=== PATIENT | female | born 1965 | race Caucasian/White ===

== ENCOUNTER 2018-06-21 16:36 | Emergency (ER) | payer MEDICARE, MEDICAID, SELFPAY ==
[2018-06-21] VITALS (68 sets, daily range): BP systolic 74–147; BP diastolic 36–91; PULSE 77–134; RESP 10–37; TEMP 37.1; O2SAT 90–100
--- NOTE | 2018-06-21 17:14 | W.ED.GENAD ---
Discharge Plan Disposition Patient Disposition: HOME Condition: Stable Discharge Details Chief Complaint: OD/Poison Clinical Impression: Overdose of anticonvulsant Primary Care Provider: Tenzin Espinoza ED Provider: Noemy Collado Home Meds and New Rx's Prescriptions: Continue lamotrigine [Lamictal] 150 MG tablet 275 mg PO DAILY RF: 0 fluticasone-salmeterol [Advair Diskus] 1 EACH blister with device 1 ea Inhalation RF: 0 cetirizine 5 MG tablet 10 mg PO DAILY RF: 0 cyanocobalamin (vitamin B-12) 1,000 MCG tablet 1,000 mcg PO DAILY RF: 0 gabapentin 250 MG/5 ML solution 600 mg PO HS RF: 0 calcium carbonate-vitamin D3 1 EACH tablet 1 ea PO RF: 0 podofilox 3.5 ML solution 3.5 ml Topical RF: 0 aspirin [Aspirin Low-Strength] 81 MG tablet,chewable 81 mg PO DAILY RF: 0 epinephrine [EpiPen 2-Tomas] 0.3 MG/0.3 ML auto-injector 0.3 mg IM ONCE RF: 0 albuterol sulfate 8.5 GM HFA aerosol inhaler 1 - 2 puff Inhalation Q6H PRN RF: 0 prochlorperazine maleate 5 MG tablet 5 mg PO Q8H PRN Qty: 90 RF: 6 topiramate [Topamax] 25 MG tablet 25 mg PO HS Qty: 60 RF: 6 Discharge Instructions Instructions: Suicide Prevention for Adults (ED), Adult Overdose (ED) Additional Instructions: Please return immediately to the emergency department if you develop any new or worsening symptoms or if you become otherwise concerned. It is extremely important that you make an appointment to be seen by your primary care doctor this week in follow-up for this visit. Referrals: Tenzin Espinoza [Primary Care Provider] - Discharge Data Discharge Date/Time-TO BE ENTERED AT DEPARTURE: 06/22/18 10:35 Medical Decision Making <Mario Alberto Collado MD - Last Filed: 06/26/18 16:53> [facility] Narrative Medical decision making narrative: 17:15 --53-year-old female here after intentional ingestion of unknown amount of Lamictal around 3:30 PM today. This ingestion was an attempt to harm herself. Patient denies suicidality at this time. She is tearful. ECG reviewed and interpreted by me: Sinus tachycardia 108 bpm, T-wave inversions are noted in leads II, 3, aVF as well as some subtle ST depressions in V3 to V6. Patient denies chest pain. I called and spoke with poison control center and they recommended supportive care only. Consider ingestion of other substances. Plan to check Tylenol and salicylate levels as well as LFTs Patient will require crisis evaluation 17:53 -- Pt now vomiting. Zofran given. Still vomiting. Will give ativan. -- Pt reassessed mulitple times and stable. Fatigued. Labs revewied and nondiagnostic. 22:40 -- Pt reassessed and stable. Plan to consult mental health. <Evan Olivera MD - Last Filed: 06/22/18 05:52> [facility] Narrative Medical decision making narrative: Received signout from Dr. Collado. Please see his note regarding details of history, presentation, initial medical decision-making in plan of care. 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 She was not able to be interviewed by the mental health screeners and therefore was observed through the overnight. Patient will be held emergency department for repeat mental health screening in the morning. Case will be signed out to Dr. Manjinder Collado pending visual health evaluation and disposition. <Noemy Collado MD - Last Filed: 06/23/18 13:55> [facility] Narrative Medical decision making narrative: Linda Moran was signed out to me by Dr. Olivera at shift change with mental health evaluation pending. Please prior notes for ED H&P. Pt reports that she is feeling much better. She states to me that she sometimes gets angry, and last night made a quick and bad decision. She reports that she does not want to , and made a big mistake last night that she has no intention of making again. She states that upon taking the pills, she recognized immediately that she did not want to harm herself or . She feels safe at home. No HI. Denies hallucinations. Her exam is normal. Plan for mental health eval. Pt developed significant cough after discussion with mental health. Pt reports that she has had coughing spells every morning for at least a year that she believes is 2/2 heavy smoking. She states that cough today is no different from baseline and denies SOB. Nl WOB, LCTAB. Given prolonged, deep productive cough, plan for CXR for r/o aspiration/PNA as Pt was reportedly somnolent after OD last night. CXR okay. Pt cleared by mental [facility], Pt placed on care management list for PCP f/u this week. Lengthy discussion with Pt re: RTED precautions and importance of outpt f/u, she is amenable to the plan. Imaging Data Radiologic Study: Attestation: I personally reviewed and interpreted this imaging study as follows: Radiologist's impression: CHEST: Frontal and lateral views. Comparison 03/28/15. The heart is normal in size. The lungs are clear. The mediastinal structures and pleura appear intact. CONCLUSION: Normal chest. HPI - General Adult <Mario Alberto Collado MD - Last Filed: 06/26/18 16:53> General Date/Time Provider Initiated Documentation: 06/21/18 17:12. HPI Narrative: 53-year-old female presents after intentional overdose on Lamictal. Patient notes that she attempted to overdose by consuming a large amount of Lamictal. Is not sure as to the exact quantity she took but notes that it was a handful of 200 mg and 25 mg tablets. Ingestion occurred at 3:30 PM. She denies other ingestion. Patient notes that she feels shaky and generally not well. Patient notes that she has been feeling depressed. After consuming these tablets she felt like she had made a mistake and sought care from her friend and neighbor. She denies active suicidality at this time. Patient is prescribed Lamictal as well as Wellbutrin and gabapentin. Patient is not forthcoming with past medical history. Related Data Home Medications Medication Instructions Recorded Confirmed albuterol sulfate 1 - 2 puff INHALATION Q6H PRN 07/25/14 inhaler aspirin [Aspirin Low-Strength] 81 mg PO DAILY tab-cap 07/25/14 calcium carbonate-vitamin D3 1 ea PO 07/25/14 cetirizine 10 mg PO DAILY tab-cap 07/25/14 cyanocobalamin (vitamin B-12) 1,000 mcg PO DAILY 07/25/14 epinephrine [EpiPen 2-Tomas] 0.3 mg IM ONCE 07/25/14 fluticasone-salmeterol [Advair 1 ea INHALATION disk 07/25/14 Diskus] gabapentin 600 mg PO HS ml 07/25/14 06/21/18 lamotrigine [Lamictal] 275 mg PO DAILY tab-cap 07/25/14 06/21/18 podofilox 3.5 ml TOPICAL script 07/25/14 prochlorperazine maleate 5 mg PO Q8H PRN #90 tab-cap 07/27/14 topiramate [Topamax] 25 mg PO HS #60 tab-cap 07/27/14 Allergies Allergy/AdvReac Type Severity Reaction Status Date / Time cortisone [Cortisone] Allergy Itching Unverified 06/21/18 16:58 diphenhydramine HCl Allergy Hives Unverified 06/21/18 16:58 [From Benadryl] ibuprofen Allergy Vomiting Unverified 06/21/18 16:58 latex Allergy Unverified 06/21/18 16:58 venom-honey bee Allergy Palpitation Unverified 06/21/18 16:58 [bee venom (honey bee)] s perfumes Allergy nasal Uncoded 06/21/18 16:58 congestion General Stated Complaint: OD/Poison CINDY: 2 Review of Systems <Mario Alberto Collado MD - Last Filed: 06/26/18 16:53> Gastrointestinal Reports nausea Psychiatric Reports anxiety, Reports depression and Denies hallucinations Exam <Mario Alberto Collado MD - Last Filed: 06/26/18 16:53> Const General: cooperative and anxious Orientation: alert and awake HENMD Head: normal to inspection and normocephalic Mouth: moist mucous membranes Throat: posterior oropharynx normal, uvula midline, posterior oropharynx abnormal and no uvular edema Eyes General: appearance normal, both eyes and all related structures Conjunctivae: conjunctivae normal EOM: EOM intact bilaterally Neck Neck: trachea midline, supple and no lymphadenopathy noted Resp Effort & Inspection: normal respiratory effort, cough, not labored and no respiratory distress Auscultation: clear to auscultation bilaterally, no rales, no rhonchi and no wheezes Cardio Jugular venous pressure: no JVD Rate: tachycardic Rhythm: regular rhythm Heart Sounds: S1 normal, S2 normal, no gallops, no murmurs and no rubs GI Palpation: soft and nontender Skin General skin exam: no rashes or lesions noted and dry skin Other: warm Neuro General: alert and awake Cranial Nerves: CN's II-XI intact bilaterally Speech: speech normal Motor: tremor Extrem General: clubbing, cyanosis or edema noted Psych Appearance: grossly normal Mental Status: other (depressed) Mood: other (depressed) Affect: sad Attitude: cooperative Thought Content: normal Course <Mario Alberto Collado MD - Last Filed: 06/26/18 16:53> Vital Signs Temperature 37.1 C 06/21/18 16:38 Pulse 112 H 06/21/18 16:38 Respiratory Rate 15 06/21/18 16:38 Blood Pressure 143/65 H 06/21/18 16:38 Pulse Oximetry 96 06/21/18 16:38 Temperature 37.1 C 06/21/18 16:38 Pulse 112 H 06/21/18 16:38 Respiratory Rate 10 L 06/21/18 16:59 Blood Pressure 143/65 H 06/21/18 16:38 Pulse Oximetry 96 06/21/18 16:38 Sign Out <Mario Alberto Collado MD - Last Filed: 06/26/18 16:53> Sign Out Data: Sign Out Comment: Plan to await crisis evaluation and reassess. Last updated by Mario Alberto Collado MD at 06/21/18 23:04 Sign Out Comment: Reassess following crisis eval Last updated by Evan Olivera MD at 06/22/18 06:25
--- NOTE | 2018-06-21 17:17 | ED.GENADUL_ITS ---
Discharge Plan Disposition Patient Disposition: HOME Condition: Stable Discharge Details Chief Complaint: OD/Poison Clinical Impression: Overdose of anticonvulsant Primary Care Provider: Tenzin Espinoza ED Provider: Noemy Collado Home Meds and New Rx's Prescriptions: Continue lamotrigine [Lamictal] 150 MG tablet 275 mg PO DAILY RF: 0 fluticasone-salmeterol [Advair Diskus] 1 EACH blister with device 1 ea Inhalation RF: 0 cetirizine 5 MG tablet 10 mg PO DAILY RF: 0 cyanocobalamin (vitamin B-12) 1,000 MCG tablet 1,000 mcg PO DAILY RF: 0 gabapentin 250 MG/5 ML solution 600 mg PO HS RF: 0 calcium carbonate-vitamin D3 1 EACH tablet 1 ea PO RF: 0 podofilox 3.5 ML solution 3.5 ml Topical RF: 0 aspirin [Aspirin Low-Strength] 81 MG tablet,chewable 81 mg PO DAILY RF: 0 epinephrine [EpiPen 2-Tomas] 0.3 MG/0.3 ML auto-injector 0.3 mg IM ONCE RF: 0 albuterol sulfate 8.5 GM HFA aerosol inhaler 1 - 2 puff Inhalation Q6H PRN RF: 0 prochlorperazine maleate 5 MG tablet 5 mg PO Q8H PRN Qty: 90 RF: 6 topiramate [Topamax] 25 MG tablet 25 mg PO HS Qty: 60 RF: 6 Discharge Instructions Instructions: Suicide Prevention for Adults (ED), Adult Overdose (ED) Additional Instructions: Please return immediately to the emergency department if you develop any new or worsening symptoms or if you become otherwise concerned. It is extremely important that you make an appointment to be seen by your primary care doctor this week in follow-up for this visit. Referrals: Tenzin Espinoza [Primary Care Provider] - Discharge Data Discharge Date/Time-TO BE ENTERED AT DEPARTURE: 06/22/18 10:35 Medical Decision Making <Mario Alberto Collado MD - Last Filed: 06/26/18 16:53> [facility] Narrative Medical decision making narrative: 17:15 --53-year-old female here after intentional ingestion of unknown amount of Lamictal around 3:30 PM today. This ingestion was an attempt to harm herself. Patient denies suicidality at this time. She is tearful. ECG reviewed and interpreted by me: Sinus tachycardia 108 bpm, T-wave inversions are noted in leads II, 3, aVF as well as some subtle ST depressions in V3 to V6. Patient denies chest pain. I called and spoke with poison control center and they recommended supportive care only. Consider ingestion of other substances. Plan to check Tylenol and salicylate levels as well as LFTs Patient will require crisis evaluation 17:53 -- Pt now vomiting. Zofran given. Still vomiting. Will give ativan. -- Pt reassessed mulitple times and stable. Fatigued. Labs revewied and nondiagnostic. 22:40 -- Pt reassessed and stable. Plan to consult mental health. <Evan Olivera MD - Last Filed: 06/22/18 05:52> [facility] Narrative Medical decision making narrative: Received signout from Dr. Collado. Please see his note regarding details of history, presentation, initial medical decision-making in plan of care. 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 She was not able to be interviewed by the mental health screeners and therefore was observed through the overnight. Patient will be held emergency department for repeat mental health screening in the morning. Case will be signed out to Dr. Manjinder Collado pending visual health evaluation and disposition. <Noemy Collado MD - Last Filed: 06/23/18 13:55> [facility] Narrative Medical decision making narrative: Linda Moran was signed out to me by Dr. Olivera at shift change with mental health evaluation pending. Please prior notes for ED H&P. Pt reports that she is feeling much better. She states to me that she sometimes gets angry, and last night made a quick and bad decision. She reports that she does not want to , and made a big mistake last night that she has no intention of making again. She states that upon taking the pills , she recognized immediately that she did not want to harm herself or . She feels safe at home. No HI. Denies hallucinations. Her exam is normal. Plan for mental health eval. Pt developed significant cough after discussion with mental health. Pt reports that she has had coughing spells every morning for at least a year that she believes is 2/2 heavy smoking. She states that cough today is no different from baseline and denies SOB. Nl WOB, LCTAB. Given prolonged, deep productive cough, plan for CXR for r/o aspiration/PNA as Pt was reportedly somnolent after OD last night. CXR okay. Pt cleared by mental [facility], Pt placed on care management list for PCP f/u this week. Lengthy discussion with Pt re: RTED precautions and importance of outpt f/u, she is amenable to the plan. Imaging Data Radiologic Study: Attestation: I personally reviewed and interpreted this imaging study as follows: Radiologist's impression: CHEST: Frontal and lateral views. Comparison 03/28/15. The heart is normal in size. The lungs are clear. The mediastinal structures and pleura appear intact. CONCLUSION: Normal chest. HPI - General Adult <Mario Alberto Collado MD - Last Filed: 06/26/18 16:53> General Date/Time Provider Initiated Documentation: 06/21/18 17:12 . HPI Narrative: 53-year-old female presents after intentional overdose on Lamictal. Patient notes that she attempted to overdose by consuming a large amount of Lamictal. Is not sure as to the exact quantity she took but notes that it was a handful of 200 mg and 25 mg tablets. Ingestion occurred at 3:30 PM. She denies other ingestion. Patient notes that she feels shaky and generally not well. Patient notes that she has been feeling depressed. After consuming these tablets she felt like she had made a mistake and sought care from her friend and neighbor. She denies active suicidality at this time. Patient is prescribed Lamictal as well as Wellbutrin and gabapentin. Patient is not forthcoming with past medical history. Related Data Home Medications Medication Instructions Recorded Confirmed albuterol sulfate 1 - 2 puff INHALATION Q6H PRN 07/25/14 inhaler aspirin [Aspirin Low-Strength] 81 mg PO DAILY tab-cap 07/25/14 calcium carbonate-vitamin D3 1 ea PO 07/25/14 cetirizine 10 mg PO DAILY tab-cap 07/25/14 cyanocobalamin (vitamin B-12) 1,000 mcg PO DAILY 07/25/14 epinephrine [EpiPen 2-Tomas] 0.3 mg IM ONCE 07/25/14 fluticasone-salmeterol [Advair 1 ea INHALATION disk 07/25/14 Diskus] gabapentin 600 mg PO HS ml 07/25/14 06/21/18 lamotrigine [Lamictal] 275 mg PO DAILY tab-cap 07/25/14 06/21/18 podofilox 3.5 ml TOPICAL script 07/25/14 prochlorperazine maleate 5 mg PO Q8H PRN #90 tab-cap 07/27/14 topiramate [Topamax] 25 mg PO HS #60 tab-cap 07/27/14 Allergies Allergy/AdvReac Type Severity Reaction Status Date / Time cortisone [Cortisone] Allergy Itching Unverified 06/21/18 16:58 diphenhydramine HCl Allergy Hives Unverified 06/21/18 16:58 [From Benadryl] ibuprofen Allergy Vomiting Unverified 06/21/18 16:58 latex Allergy Unverified 06/21/18 16:58 venom-honey bee Allergy Palpitation Unverified 06/21/18 16:58 [bee venom (honey bee)] s perfumes Allergy nasal Uncoded 06/21/18 16:58 congestion General Stated Complaint: OD/Poison CINDY: 2 Review of Systems <Mario Alberto Collado MD - Last Filed: 06/26/18 16:53> Gastrointestinal Reports nausea Psychiatric Reports anxiety, Reports depression and Denies hallucinations Exam <Mario Alberto Clolado MD - Last Filed: 06/26/18 16:53> Const General: cooperative and anxious Orientation: alert and awake HENPR Head: normal to inspection and normocephalic Mouth: moist mucous membranes Throat: posterior oropharynx normal, uvula midline, posterior oropharynx abnormal and no uvular edema Eyes General: appearance normal, both eyes and all related structures Conjunctivae: conjunctivae normal EOM: EOM intact bilaterally Neck Neck: trachea midline, supple and no lymphadenopathy noted Resp Effort & Inspection: normal respiratory effort, cough, not labored and no respiratory distress Auscultation: clear to auscultation bilaterally, no rales, no rhonchi and no wheezes Cardio Jugular venous pressure: no JVD Rate: tachycardic Rhythm: regular rhythm Heart Sounds: S1 normal, S2 normal, no gallops, no murmurs and no rubs GI Palpation: soft and nontender Skin General skin exam: no rashes or lesions noted and dry skin Other: warm Neuro General: alert and awake Cranial Nerves: CN's II-XI intact bilaterally Speech: speech normal Motor: tremor Extrem General: clubbing, cyanosis or edema noted Psych Appearance: grossly normal Mental Status: other (depressed) Mood: other (depressed) Affect: sad Attitude: cooperative Thought Content: normal Course <Mario Alberto Collado MD - Last Filed: 06/26/18 16:53> Vital Signs Temperature 37.1 C 06/21/18 16:38 Pulse 112 H 06/21/18 16:38 Respiratory Rate 15 06/21/18 16:38 Blood Pressure 143/65 H 06/21/18 16:38 Pulse Oximetry 96 06/21/18 16:38 Temperature 37.1 C 06/21/18 16:38 Pulse 112 H 06/21/18 16:38 Respiratory Rate 10 L 06/21/18 16:59 Blood Pressure 143/65 H 06/21/18 16:38 Pulse Oximetry 96 06/21/18 16:38 Sign Out <Mario Alberto Collado MD - Last Filed: 06/26/18 16:53> Sign Out Data: Sign Out Comment: Plan to await crisis evaluation and reassess. Last updated by Mario Alberto Collado MD at 06/21/18 23:04 Sign Out Comment: Reassess following crisis eval Last updated by Evan Olivera MD at 06/22/18 06:25
[2018-06-21] MEDS: Lactated Ringers 1,000 ML 1000 ML IV (17:35)
[2018-06-21 17:44] LABS: Abs Immature Grans 0.01 k/cumm (0.0-0.09); Absolute Basophil Count 0.06 k/cumm (0.0-0.2); Absolute Eosinophil Count 0.26 k/cumm (0.0-0.7); Absolute Lymphocyte Count 3.31 k/cumm (1.2-3.4); Absolute Monocyte Count 0.84 k/cumm (0.11-0.7); Basophils % 0.7; Eosinophils % 3.1; HCT 36.9 % (36.0-46.0); HGB 12.7 g/dL (12.0-15.5); Immature Grans % 0.1; Lymphocytes % 39.5; Mean Corp. HGB Concentration 34.4 g/dL (32.0-36.0); Mean Corpuscular Hemoglobin 34.2 pg (27.0-33.0); Mean Corpuscular Volume 99.5 fL (80-95); Mean Platelet Volume 9.2 fL (8.0-11.0); Neutrophils % 46.6; Platelet Count 335 x1000/uL (130-400); RBC 3.71 m/cumm (4.00-5.20); RBC Distribution Width 13.2 % (11.7-14.6); White Blood Cell Count 8.38 k/cumm (4.4-10.8)
[2018-06-21] MEDS: Ondansetron 4 MG/2 ML VIAL (17:47)
[2018-06-21 17:55] LABS: ALT 19 U/L (12-78); AST 13 U/L (15-37); Albumin 3.9 g/dL (3.4-5.0); Alkaline Phosphatase 85 U/L (46-116); BUN 9 mg/dL (7-18); Bilirubin, Total 0.2 mg/dL (0.2-1.0); CREATININE 0.88 mg/dL (0.55-1.02); Chloride 104 mmol/L (98-107); Glucose 116 mg/dL (70-100); Potassium 3.5 mmol/L (3.5-5.1); Sodium 141 mmol/L (136-145); Total Protein 7.4 g/dL (6.4-8.2)
[2018-06-21 17:59] LABS: Salicylate 5.3 mg/dL (2.8-20.0)
[2018-06-21 18:02] LABS: Acetaminophen < 2 ug/mL (10-30)
[2018-06-21 18:04] LABS: ETHANOL BLOOD < 3.0 mg/dL (<3)
[2018-06-21] MEDS: LORazepam 2 MG/ML VIAL 1 MG IVP (18:04)
[2018-06-21 20:26] LABS: Troponin I < 0.02 ng/mL (0.00-0.06)
--- NOTE | 2018-06-21 20:32 | NUR.NOTE ---
pt continues to refuse urine sampleNursing Note:
[2018-06-21 21:52] LABS: *AMPHETAMINES SCREEN URINE Negative (Negative); *BARBITURATES SCREEN URINE Negative (Negative); *BENZODIAZEPINES SCREEN URINE Negative (Negative); Cannabinoids THC POSITIVE (Negative); Cocaine Screen,Urine Negative (Negative); METHADONE URINE SCREEN Negative (Negative); OPIATES URINE SCREEN Negative (Negative)
[2018-06-21 22:02] LABS: Tricyclic Antidepressants Negative (Negative)
[2018-06-21] MEDS: Ondansetron 4 MG/2 ML VIAL IVP (23:45)
[2018-06-22] VITALS (94 sets, daily range): BP systolic 82–142; BP diastolic 35–79; PULSE 68–99; RESP 13–24; TEMP 36.5–36.7; O2SAT 92–95
[2018-06-22] MEDS: LORazepam 2 MG/ML VIAL 0.5 MG IVP
--- NOTE | 2018-06-22 03:47 | NUR.NOTE ---
Nursing Note: pt continues to rest- making own positional changes. Unlabored breathing. Will continue to monitor.
--- NOTE | 2018-06-22 08:11 | NUR.NOTE ---
Nursing Note: 0700--sleeping ---VS stable
--- NOTE | 2018-06-22 08:11 | NUR.NOTE ---
Nursing Note: 0800 re-applied EKG lead on pt--told me to F---- leave me alone . I'm leaving this F--- place Did fall back asleep in a few minutes. Dr Collado notified.
--- NOTE | 2018-06-22 09:11 | PDOC.MHCN ---
Date of service: 06/22/18 Time of Service: 09:21 Presenting Issue: *How did they arrive here at ER and why did they come: Patient arrived at the hospital via ambulance after taking an large quantity of Lamictal in an attempt to self harm. Precipitating Factors: *Assessment of Safety SI/HI (address delusions if pertaining to the SI/HI) Patient denies current SI but admits that she did take a larg quantity of Lamictal in an attempt to self harm. He states that it was astupid mistake and she can/will be safe if she goes home. The patient identified her fiance and her friend as positive support people in her life if she was to have feelings of self harm again. Disposition: *Behavior: Patient is laying on the hospital bed talking with this mortgage underwriter. She is shaky and frequently caughing up flem. *Eye Contact: Intermmittant *Mood: Calm, tired *Affect: Apprpriate for conversation *Appetite: Unknown *Sleep (trouble falling/staying asleep): Unknown Plan: Patient has contracted for safety. This mortgage underwriter has given the patient the 28/04 phone number for [facility] if she is having a mental health emergency.
--- NOTE | 2018-06-22 09:21 | PDOC.MHCN_ITS ---
Date of service: 06/22/18 Time of Service: 09:21 Presenting Issue: *How did they arrive here at ER and why did they come: Patient arrived at the hospital via ambulance after taking an large quantity of Lamictal in an attempt to self harm. Precipitating Factors: *Assessment of Safety SI/HI (address delusions if pertaining to the SI/HI) Patient denies current SI but admits that she did take a larg quantity of Lamictal in an attempt to self harm. He states that it was astupid mistake and she can/will be safe if she goes home. The patient identified her fiance and her friend as positive support people in her life if she was to have feelings of self harm again. Disposition: *Behavior: Patient is laying on the hospital bed talking with this writer editor. She is shaky and frequently caughing up flem. *Eye Contact: Intermmittant *Mood: Calm, tired *Affect: Apprpriate for conversation *Appetite: Unknown *Sleep (trouble falling/staying asleep): Unknown Plan: Patient has contracted for safety. This writer editor has given the patient the 28/04 phone number for [facility] if she is having a mental health emergency.
--- NOTE | 2018-06-22 09:29 | DI.RAD_ITS ---
SYMPTOMS/DIAGNOSIS: COUGH CHEST: Frontal and lateral views. Comparison 03/28/15. The heart is normal in size. The lungs are clear. The mediastinal structures and pleura appear intact. CONCLUSION: Normal chest.
--- NOTE | 2018-06-23 09:24 | PDOC.ERCMPRO ---
Care Management Progress Note 06/23/18-Pt was seen on 06/21/18 for depression/OD . F/U this week referral sent to [facility] as Dr. Bright Espinoza is Pt's pCP.
== END 2018-06-22 10:35 | disposition home or self-care (01) ==
PROVIDERS: Student in an Organized Health Care Education/Training Program; Emergency Provider Student in an Organized Health Care Education/Training Program; PCP Family Medicine
DX: T42.72XA Poisoning by unspecified antiepileptic and sedative-hypnotic drugs, intentional self-harm, initial encounter (principal); R11.2 Nausea with vomiting, unspecified; R05 Cough; J44.9 Chronic obstructive pulmonary disease, unspecified; F17.210 Nicotine dependence, cigarettes, uncomplicated
CPT/HCPCS: 36415; 80053; 80307; 93005; 96361; 96365; 96366; 96375; 96376; 99285; 71046; 80320; 80329; 84484; 85025; 93010; 99284; J2060; J2405

== ENCOUNTER 2018-08-13 01:28 | Outpatient (CLI) | payer MEDICARE, MEDICAID, SELFPAY ==
[2018-08-13] MEDS: Inhaler, Assist Device 1 EACH MC (08:53)
[2018-08-13] MEDS: Albuterol HFA 18 GM 200 PUFF INH IH (08:53)
--- NOTE | 2018-08-13 13:17 | PFT_ITS ---
PULMONARY FUNCTION TEST REPORT Patient identification - Linda Moran DATE OF - 69 DATE OF SERVICE - 08/13/18 REQUESTING PROVIDER - Tenzin Espinoza M.D. INTERPRETATION OF STUDY Spirometry shows mild obstructive airways disease with significant bronchodilator response. LUNG VOLUMES - Lung volumes show no evidence of restriction. There is moderate hyperinflation and air trapping. DIFFUSION CAPACITY- Normal. AIRWAY RESISTANCE - Markedly elevated. IMPRESSION Mild obstructive airways disease with significant bronchodilator response. This is associated with moderate hyperinflation and air trapping. When this study was compared to previous one from 09/27/2008 and 03/28/2015, the patient has a gradual decline in both FEV1 and FVC with an overall decline of 590 cc in FVC and 700 cc in FEV1. KRISTIN/grupo T- 08/14/18
== END 2018-08-13 01:48 ==
PROVIDERS: PCP Family Medicine; Visit Provider Family Medicine
DX: J44.9 Chronic obstructive pulmonary disease, unspecified (principal)
CPT/HCPCS: 94060; 94150; 94726; 94729

== ENCOUNTER → 2019-04-26 09:35 | Outpatient (BNVA) | payer MEDICARE, MEDICAID, SELFPAY | PROVIDERS: PCP Family Medicine; Visit Provider Physical Therapy Assistant | DX: Z12.11 Encounter for screening for malignant neoplasm of colon (principal); Z79.82 Long term (current) use of aspirin; J44.9 Chronic obstructive pulmonary disease, unspecified; F17.200 Nicotine dependence, unspecified, uncomplicated ==

== ENCOUNTER 2019-05-10 08:10 | Day surgery (SDC) | payer MEDICARE, MEDICAID, SELFPAY ==
--- NOTE | 2019-05-10 07:04 | W.COLOREPORT ---
Date of service: 05/10/19 Time of Service: 09:12 Colonoscopy Report Date of procedure: 05/10/19 Pre-op diagnosis general: Colon Cancer Screening Post-op diagnosis procedure note: other (Colorectal polyps and diverticulosis, anal warts) Procedure: Colonoscopy with polypectomy by hot snare and cold forceps Surgeon: Janae Bernal Anesthesia proc note operative: other (General/ ASA 2/ Darrius Stratton, MARCELINO) Estimated blood loss (mL): 5 Pathology: other (Cecal polyp, Ascending polyp x2, descending polyp, and sigmoid polyp) Complications: None Disposition: same day Indications: Mrs. Moran is a pleasant 54 year old female seen in the office for a screening colonoscopy. Risks, benefits and complications have been reviewed. Complications include but are not limited to bleeding, pain, perforation, missed small lesion/polyp, sore throat, aspiration and adverse reaction to the medications. Questions were entertained and answered to their satisfaction and they wished to proceed. No guarantees were given or implied. Prep: Miralax/Dulcolax Procedure Start Time: :12 Procedure End Time: :57 Retraction Time: 38 minutes Findings: Multiple polyps noted throughout and moderate sigmoid diverticulosis Anal warts Procedure Description: After informed consent was obtained the patient was taken to the procedure room and placed in a left decubitous position. Monitors were applied and a time out was done. The patients name, date of , procedure, allergies to medications and metal in their body was reviewed. The patient was then sedated. Once sedated and comfortable a rectal exam was done. External exam showed some small anal warts. Internal exam revealed a normal sphincter tone and no palpable masses. The scope was then introduced and retro-flexed. No internal hemorrhoids, masses or polyps were identified. The scope was then advanced to the cecum without difficulty. The TI and appendiceal orifice were identified. The prep was adequate. The scope was then slowly retracted over 38 minutes back into the rectum. Polyps were removed with a cold forceps in the cecum, ascending, descending and sigmoid colon, and with a hot snare in the descending colon. The scope was removed and the patient was woken up and taken back to Same day surgery in stable condition. The patient tolerated the procedure well and there were no immediate complications. Follow up: The patient should follow up in 3-5 years unless they develop changes in bowel habits or other new gastrointestinal complaints.
--- NOTE | 2019-05-10 07:06 | W.PM.DSUDISC ---
Discharge Plan Disposition Patient Disposition: HOME Condition: Good Discharge Details Reason For Visit: Colonoscopy Attending Provider: Janae Bernal Primary Care Provider: Tenzin Espinoza [place] Meds and New Rx's Prescriptions: Continued mirtazapine 7.5 mg tablet 7.5 mg PO DAILY RF: 0 lamotrigine [Lamictal] 150 MG tablet 275 mg PO DAILY RF: 0 fluticasone propion-salmeterol [Advair Diskus] 1 EACH blister with device 1 ea Inhalation RF: 0 cetirizine 5 MG tablet 10 mg PO DAILY RF: 0 cyanocobalamin (vitamin B-12) 1,000 MCG tablet 1,000 mcg PO DAILY RF: 0 gabapentin 250 MG/5 ML solution 600 mg PO HS RF: 0 calcium carbonate-vitamin D3 1 EACH tablet 1 ea PO RF: 0 podofilox 3.5 ML solution 3.5 ml Topical RF: 0 aspirin [Aspirin Low-Strength] 81 MG tablet,chewable 81 mg PO DAILY RF: 0 epinephrine [EpiPen 2-Tomas] 0.3 MG/0.3 ML auto-injector 0.3 mg IM ONCE RF: 0 albuterol sulfate 8.5 GM HFA aerosol inhaler 1 - 2 puff Inhalation Q6H PRN RF: 0 prochlorperazine maleate 5 MG tablet 5 mg PO Q8H PRN Qty: 90 RF: 6 Discontinued polyethylene glycol 3350 17 gram/dose powder 238 g PO ONCE Qty: 238 RF: 0 bisacodyl [Dulcolax (bisacodyl)] 5 mg tablet,delayed release (DR/EC) 5 mg PO ONCE Qty: 4 RF: 0 No Action omega 9-bzl-ngi-fish oil [Fish Oil] 1,000 mg (120 mg-180 mg) Capsule 1,000 cap PO RF: 0 omega 8-dtu-lpn-fish oil [Fish Oil] 1,000 mg (120 mg-180 mg) Capsule 1 cap PO DAILY RF: 0 coconut oil 1,000 mg Capsule 1 mg PO RF: 0 vit V-P4-R9-iutlq-Q52-VRA-Q10 15 unit-15 mg- 12.5 mg-1 mg Capsule 1 cap PO RF: 0 Discharge Instructions Instructions: Colonoscopy (GEN), Colorectal Polyps (GEN), Diverticulosis (ED), Genital Warts (ED) Additional Instructions: Findings:1. Diverticulosis 2. polyps x 5 3. Anal warts Follow up: 3-5 years Please call if you develop: fevers >101.5 Nausea or Vomiting Abdominal pain that is not transient DAY SURGERY UNIT POST COLONOSCOPY INSTRUCTIONS 1. Because there will be medication in your system for the next 24 hours, you may feel a little sleepy. Your coordination will be affected. Therefore: a. Do not drive or operate dangerous equipment for 24 hours. b. Do not drink alcohol beverages for 24 hours (not even beer). c. Plan to go home and rest for the day. 2. Generally there are no restrictions on your activity after a day or so has gone by, but you may feel a bit fatigued for a few days. 3 After you arrive home you may have a light meal and return to a normal diet as you can tolerate it without feeling sick to your stomach. 4. After surgery, you may feel pain or discomfort. This should be only transient, but if it persists please contact your doctor. 5. If there are any questions regarding the findings of your procedure, please feel free to contact your doctor. 6. If you are unable to contact your doctor with a problem, contact the hospital at [phone]. 7. Continue all your regular medications unless directed otherwise. I understand the above instructions and have no questions. Signature of Patient or Responsible Adult Escort Date/Time Name of Responsible Adult Escort Signature of Nurse Date/Time Activity:: Activity as Tolerated Diet:: high fiber diet Discharge Orders Discharge Orders: Discharge Order (Routine); Ordered 05/10/19 Ordered By: Janae Bernal DS: Diagnosis Discharge Diagnosis (1) History of colonoscopy: Status: Resolved (2) Anal warts: (3) Colorectal polyps: (4) Diverticulosis:
[2019-05-10 08:45] VITALS: BP 122/68; PULSE 78; RESP 16; TEMP 36.6; O2SAT 96
[2019-05-10] MEDS: Lactated Ringers 1,000 ML 80 ML IV (09:00)
--- NOTE | 2019-05-10 09:23 | BOWEL_PTH ---
PATIENT: Linda Moran LOC: [facility] U#:[id number] AGE/SX: 54/F ROOM: RE05/10/[address]: Janae Bernal MD : [id number] BED: DIS: 05/10/2019 SPEC #: [id number] RECD: 05/10/19 12:54 STATUS: DENYS REQ #: [id number] RENATO: 05/10/19 09:[address]: Janae Bernal DEPT: Surgical Specimen RECD BY: Gaby Beasley ENTERED: 05/10/19 12:56 SP TYPE: Bowel OTHR DR: Tenzin Espinoza Tissues: 1 - BIOPSY BOWEL 2 - BIOPSY BOWEL 3 - BIOPSY BOWEL 4 - BIOPSY BOWEL Procedures: GROSS AND MICRO LEVEL 4 Comments: [id number]
[2019-05-10 10:20] VITALS: BP 102/45; PULSE 79; RESP 18; TEMP 36; O2SAT 100
== END 2019-05-10 10:55 | disposition home or self-care (01) ==
LOC: SUR 08:10
PROVIDERS: PCP Family Medicine; Visit Provider Surgery
PROC: 0DJD8ZZ Inspection of Lower Intestinal Tract, Via Natural or Artificial Opening Endoscopic (ICD-10-PCS; CPT 45378; principal; 2019-05-10 09:15)
DX: Z12.11 Encounter for screening for malignant neoplasm of colon (principal); D12.2 Benign neoplasm of ascending colon; D12.5 Benign neoplasm of sigmoid colon; K63.5 Polyp of colon; K57.30 Diverticulosis of large intestine without perforation or abscess without bleeding; A63.0 Anogenital (venereal) warts; J44.9 Chronic obstructive pulmonary disease, unspecified; F17.210 Nicotine dependence, cigarettes, uncomplicated
CPT/HCPCS: 45385; 45380; 81025; 88305

== ENCOUNTER 2019-05-29 17:25 | Emergency (ER) | payer MEDICARE, MEDICAID, SELFPAY ==
[2019-05-29 17:52] VITALS: BP 141/70; PULSE 71; RESP 18; TEMP 36.2; O2SAT 99
--- NOTE | 2019-05-29 18:01 | W.ED.GENAD ---
Discharge Plan Disposition Patient Disposition: HOME Condition: Improving Discharge Details Chief Complaint: RashLesion Clinical Impression: Insect bite Primary Care Provider: Tenzin Espinoza ED Provider: Evan Olivera Home Meds and New Rx's Prescriptions: No Action mirtazapine 7.5 mg tablet 7.5 mg PO DAILY RF: 0 lamotrigine [Lamictal] 150 MG tablet 275 mg PO DAILY RF: 0 fluticasone propion-salmeterol [Advair Diskus] 1 EACH blister with device 1 ea Inhalation RF: 0 cetirizine 5 MG tablet 10 mg PO DAILY RF: 0 cyanocobalamin (vitamin B-12) 1,000 MCG tablet 1,000 mcg PO DAILY RF: 0 gabapentin 250 MG/5 ML solution 600 mg PO HS RF: 0 calcium carbonate-vitamin D3 1 EACH tablet 1 ea PO RF: 0 podofilox 3.5 ML solution 3.5 ml Topical RF: 0 aspirin [Aspirin Low-Strength] 81 MG tablet,chewable 81 mg PO DAILY RF: 0 epinephrine [EpiPen 2-Tomas] 0.3 MG/0.3 ML auto-injector 0.3 mg IM ONCE RF: 0 albuterol sulfate 8.5 GM HFA aerosol inhaler 1 - 2 puff Inhalation Q6H PRN RF: 0 prochlorperazine maleate 5 MG tablet 5 mg PO Q8H PRN Qty: 90 RF: 6 omega 4-ini-keh-fish oil [Fish Oil] 1,000 mg (120 mg-180 mg) Capsule 1,000 cap PO RF: 0 omega 4-xek-auc-fish oil [Fish Oil] 1,000 mg (120 mg-180 mg) Capsule 1 cap PO DAILY RF: 0 coconut oil 1,000 mg Capsule 1 mg PO RF: 0 vit L-F2-Q2-ibjsb-M80-HBN-Q10 15 unit-15 mg- 12.5 mg-1 mg Capsule 1 cap PO RF: 0 Medical Decision Making 54-year-old female with unknown insect bite last night and now with an area of tender, silly ecchymotic and injury right lateral thigh. Most consistent with probable hymenoptera envenomation and resultant localized reaction. We will place her on oral prednisone for 3 days. She is stable for discharge home. HPI General Mode of arrival: ambulatory. Date/Time Provider Initiated Documentation: 05/29/19 17:31. Limitations to Documentation: no limitations. Information obtained by: patient. History of Present Illness 54 year old F presents to the emergency department with the chief complaint of Right thigh bite last night, described as moderate, Quality is described as dull and constant, and is localized to the right and lower extremity. Patient reports no radiation. Patient started experiencing this hour(s) and it has been constant. No relieving factors improve symptom(s), No exacerbating factors reported . Patient notes no other symptoms.. Patient did receive the following treatments prior to arrival, none Related Data Home Medications Medication Instructions Recorded Confirmed albuterol sulfate 1 - 2 puff INHALATION Q6H PRN 07/25/14 05/10/19 inhaler aspirin [Aspirin Low-Strength] 81 mg PO DAILY tab-cap 07/25/14 05/10/19 calcium carbonate-vitamin D3 1 ea PO 07/25/14 04/26/19 cetirizine 10 mg PO DAILY tab-cap 07/25/14 05/10/19 cyanocobalamin (vitamin B-12) 1,000 mcg PO DAILY 07/25/14 05/10/19 epinephrine [EpiPen 2-Tomas] 0.3 mg IM ONCE 07/25/14 05/10/19 fluticasone propion-salmeterol 1 ea INHALATION disk 07/25/14 04/26/19 [Advair Diskus] gabapentin 600 mg PO HS ml 07/25/14 05/10/19 lamotrigine [Lamictal] 275 mg PO DAILY tab-cap 07/25/14 05/10/19 podofilox 3.5 ml TOPICAL script 07/25/14 04/26/19 prochlorperazine maleate 5 mg PO Q8H PRN #90 tab-cap 07/27/14 05/10/19 mirtazapine 7.5 mg tablet 7.5 mg PO DAILY 04/26/19 05/10/19 coconut oil 1 mg PO 05/10/19 omega 3-kxe-orb-fish oil [Fish Oil] 1 cap PO DAILY 05/10/19 05/10/19 omega 7-hvq-fti-fish oil [Fish Oil] 1,000 cap PO 05/10/19 vit W-C7-G9-yqdiw-X48-KNS-Q10 1 cap PO 05/10/19 Allergies Allergy/AdvReac Type Severity Reaction Status Date / Time cortisone [Cortisone] Allergy Itching Unverified 05/10/19 08:35 diphenhydramine HCl Allergy Hives Unverified 05/10/19 08:35 [From Benadryl] ibuprofen Allergy Vomiting Unverified 05/10/19 08:35 latex Allergy Unverified 05/10/19 08:36 venom-honey bee Allergy Palpitation Unverified 05/10/19 08:36 [bee venom (honey bee)] s perfumes Allergy nasal Uncoded 05/10/19 08:36 congestion General Stated Complaint: RashLesion CINDY: 4 Review of Systems Review of Systems 6 systems reviewed otherwise negative. No fever, no discharge no shortness of breath. [facility] Medical History Anal warts (Acute) Anxiety (Chronic) Asthma (Chronic) Colorectal polyps (Acute) COPD (chronic obstructive pulmonary disease) (Chronic) Diverticulosis (Acute) Migraines (Chronic) Tubular adenoma of colon (Acute) Surgical History History of colonoscopy (Resolved ~05/10/19) History of shoulder surgery (Chronic) History of surgery on upper extremity (Acute) History of tubal ligation (Chronic) Social History Smoking/Tobacco Use Status: Current every day Tobacco Type: cigarettes Alcohol Intake: former Drug use: Daily Substance use type: marijuana Details: alcohol: 12 yeARS. Marijuana: t-1, one bowl Do you feel safe at home: Yes Do you feel safe in your relationship?: Yes Exam Narrative Exam Narrative: GEN: awake, alert, oriented 3. Pleasant, well groomed, interactive. HEAD: Normocephalic, atraumatic ENT: Mucous membranes moist, oropharynx unremarkable, External ear exam unremarkable EYES: PERRL, EOMI EXT: Full ROM, the right lateral mid thigh has an area of ecchymosis and tenderness with mild induration. There is no significant fluctuance. Question central area of envenomation with bite yvan. Neuro: Grossly normal neurologic exam, conversant, interactive. Psych: Speech fluent, thoughts congruent, affect normal Course Vital Signs Temperature 36.2 C L 05/29/19 17:52 Pulse 71 05/29/19 17:52 Respiratory Rate 18 05/29/19 17:52 Blood Pressure 141/70 H 05/29/19 17:52 Pulse Oximetry 99 05/29/19 17:52 Temperature 36.2 C L 05/29/19 17:52 Temperature Source Temporal Artery Scan 05/29/19 17:52 Pulse 71 05/29/19 17:52 Respiratory Rate 18 05/29/19 17:52 Respiratory Effort Non-Labored 05/29/19 17:55 Blood Pressure 141/70 H 05/29/19 17:52 Blood Pressure Position Supine 05/29/19 17:52 Pulse Oximetry 99 05/29/19 17:52 Oxygen Delivery Method Room Air 05/29/19 17:52 Oxygen Flow Rate 0 05/29/19 17:52
[2019-05-29 18:29] VITALS: BP 135/70; PULSE 71; RESP 18; TEMP 36.5; O2SAT 99
[2019-05-29] MEDS: predniSONE 20 MG TAB 40 MG PO (18:29)
== END 2019-05-29 18:25 | disposition home or self-care (01) ==
LOC: ER 18:28
PROVIDERS: Emergency Provider Emergency Medicine; PCP Family Medicine
DX: S70.361A Insect bite (nonvenomous), right thigh, initial encounter (principal); W57.XXXA Bitten or stung by nonvenomous insect and other nonvenomous arthropods, initial encounter; J44.9 Chronic obstructive pulmonary disease, unspecified; F17.200 Nicotine dependence, unspecified, uncomplicated
CPT/HCPCS: 99283; J7512

== ENCOUNTER 2019-11-09 20:14 | Outpatient (REF) | payer MEDICARE, MEDICAID, SELFPAY ==
[2019-11-09 19:53] LABS: Abs Immature Grans 0.01 k/cumm (0.0-0.09); Absolute Basophil Count 0.04 k/cumm (0.0-0.2); Absolute Eosinophil Count 0.24 k/cumm (0.0-0.7); Absolute Lymphocyte Count 4.01 k/cumm (1.2-3.4); Absolute Monocyte Count 0.81 k/cumm (0.11-0.7); Absolute Neutrophil Count 2.88 k/cumm (1.2-6.7); Basophils % 0.5; HCT 36.9 % (36.0-46.0); HGB 11.9 g/dL (12.0-15.5); Immature Grans % 0.1 %; Lymphocytes % 50.2; Mean Corp. HGB Concentration 32.2 g/dL (32.0-36.0); Mean Corpuscular Hemoglobin 32.7 pg (27.0-33.0); Mean Corpuscular Volume 101.4 fL (80-95); Mean Platelet Volume 9.7 fL (8.0-11.0); Monocytes % 10.1; Neutrophils % 36.1; Platelet Count 356 x1000/uL (130-400); RBC 3.64 m/cumm (4.00-5.20); RBC Distribution Width 14.3 % (11.7-14.6); White Blood Cell Count 7.99 k/cumm (4.4-10.8)
[2019-11-09 20:31] LABS: ALT 15 U/L (14-59); AST 9 U/L (15-37); Albumin 4.1 g/dL (3.4-5.0); Alkaline Phosphatase 78 U/L (46-116); Anion Gap 9.9 mmol/L (3-11); BUN 14 mg/dL (7-18); Bilirubin, Total 0.3 mg/dL (0.2-1.0); CO2 29.1 mmol/L (21.0-32.0); CREATININE 0.75 mg/dL (0.55-1.02); Calcium 9.1 mg/dL (8.5-10.1); Chloride 103 mmol/L (98-107); Glucose 68 mg/dL (74-106); Potassium 4.6 mmol/L (3.5-5.1); Sodium 142 mmol/L (136-145); TSH (W/Ref FT4) 1.09 uIU/mL (0.36-3.74); Total Protein 6.7 g/dL (6.4-8.2); Vitamin B12 779 pg/mL (193-986)
== END 2019-11-09 20:34 ==
LOC: NCHCN 20:14
PROVIDERS: PCP Family Medicine; Visit Provider Family Medicine
DX: R19.4 Change in bowel habit (principal); R63.4 Abnormal weight loss; D75.89 Other specified diseases of blood and blood-forming organs; R10.819 Abdominal tenderness, unspecified site; R19.7 Diarrhea, unspecified
CPT/HCPCS: 80053; 82607; 84443; 85025; 86255

== ENCOUNTER → 2019-12-21 10:53 | Outpatient (BNVA) | payer MEDICARE, MEDICAID, SELFPAY | PROVIDERS: PCP Family Medicine; Referring Provider Family Medicine; Visit Provider Surgery | DX: R10.13 Epigastric pain (principal); G89.29 Other chronic pain; J44.9 Chronic obstructive pulmonary disease, unspecified; F17.210 Nicotine dependence, cigarettes, uncomplicated | CPT/HCPCS: 99213 ==

== ENCOUNTER 2019-12-27 01:43 | Outpatient (CLI) | payer MEDICARE, MEDICAID, SELFPAY ==
--- NOTE | 2019-12-27 | DI.CT_ITS ---
EXAM: CT CHEST/ABD/PEL W CLINICAL HISTORY: UNINTENTIONAL WT LOSS, R63.4, ABD TENDERNESS,R10.819, SMOKER, ETOH USE, NEW EPIGAS TRIC PAIN COMPARISON: No exams were available for comparison FINDINGS: CT examination of the chest, abdomen, and pelvis was performed with a bolus infusion of 100 cc of Omn ipaque 350. There is moderate centrilobular pulmonary emphysematous change. Multiple calcified granulomas are no kieran in the right lung and there is a calcified azygous lymph node. Otherwise lungs are clear. No pl eural effusion. No evidence of pulmonary embolic disease or other major vascular abnormality. The liver and spleen appear normal. The pancreas appears normal. No gallbladder abnormality or bili brendon dilatation by CT criteria. Adrenals and kidneys are unremarkable. No urinary tract calcificatio n or obstruction. Abdominal aorta is of normal diameter and no significant abnormality of the major aortic branches is noted. No abdominal or pelvic adenopathy. No significant abdominal wall hernia. [employer] structures are unremarkable as visualized. Appendix is normal. No evidence of diverticulitis or bowel obstruction. IMPRESSION: Changes of COPD and healed pulmonary granulomatous disease. No other significant findings.
[2019-12-27 09:19] LABS: CREATININE 0.78 mg/dL (0.55-1.02)
[2019-12-27] MEDS: Omnipaque 350 MG/ML 100 ML BTL IJ (10:37)
== END 2019-12-27 02:03 ==
PROVIDERS: PCP Family Medicine; Visit Provider Family Medicine
DX: R63.4 Abnormal weight loss (principal); R10.819 Abdominal tenderness, unspecified site; F17.200 Nicotine dependence, unspecified, uncomplicated; F10.10 Alcohol abuse, uncomplicated; R10.13 Epigastric pain; J98.4 Other disorders of lung; Z13.89 Encounter for screening for other disorder
CPT/HCPCS: 74177; 71260; 82565; J3490

== ENCOUNTER 2020-06-02 09:08 | Outpatient (CLI) | payer MEDICARE, MEDICAID, SELFPAY ==
--- NOTE | 2020-06-02 13:44 | DI.RAD_ITS ---
EXAM: XR CHEST 2V PA LATERAL CLINICAL HISTORY: COUGH, R05, CHEST WALL PAIN, R07.89 TECHNIQUE: COMPARISON: CR XR CHEST 2V PA LATERAL from 06/22/2018 FINDINGS: Heart is not enlarged. Lungs are clear with small calcified granulomas in the right middle lobe. No pleural effusion seen. No evidence of pneumothorax. IMPRESSION: No evidence of acute process. RADIATION DOSE DELIVERED: Total DLP
== END 2020-06-02 09:28 ==
PROVIDERS: PCP Family Medicine; Visit Provider Family Medicine
DX: R05 Cough (principal); R07.89 Other chest pain
CPT/HCPCS: 71046

== ENCOUNTER 2020-10-11 03:22 | Outpatient (CLI) | payer MEDICARE, MEDICAID, SELFPAY ==
--- NOTE | 2020-10-11 12:15 | DI.MAMMO_ITS ---
EXAM: MG MAMMO SCREENING CLINICAL HISTORY: SCREENING, Z12.31. TECHNIQUE: Bilateral full field digital CC and MLO mammographic images were obtained with 3D tomosyn thesis and utilizing computer aided detection (CAD). COMPARISON: Prior mammograms dating back to 2011, the most recent being January 2018. FINDINGS: Fibroglandular tissue is moderately dense anteriorly and there is some unchanged architectural distor tion which is seen in both breasts and may reflect prior reduction surgery. There are no spiculated masses nor malignant appearing microcalcification groups. Benign-appearing mi crocalcification group in the right breast as well as other microcalcifications bilaterally are again noted. There is no significant skin thickening-retraction. IMPRESSION: Moderately dense fibroglandular tissue. Stable benign findings. No radiographic evidence of malignanc y. BI-RADS Category 2 - Benign Findings Breast Density - Category C - Heterogeneously dense Breast density Category C or D implies that the patient has dense breast tissue. Dense breast tissue can make it harder to find cancer on a mammogram. Dense breast tissue is also associated with an incr eased risk of breast cancer. This information about the result of the mammogram report was provided to the patient to raise their awareness. Use this report when you speak with the patient about their risks for breast cancer, which includes their family history. At that time, you may recommend additional screening tests (Ultrasoun d or MRI) as these tests may add significant information. A negative radiographic report should not delay biopsy if a dominant or clinically suspicious mass is present. Up to ten percent of cancers are not identified on mammography. A negative report may reinforce clinical impression. Adenosis and dense breasts may obscure an underlying neoplasm. False positive reports average 6 to 10%. Patient will receive a letter notifying them of these results.
== END 2020-10-11 03:42 ==
PROVIDERS: PCP Family Medicine; Visit Provider Family Medicine
DX: Z12.31 Encounter for screening mammogram for malignant neoplasm of breast (principal); R92.0 Mammographic microcalcification found on diagnostic imaging of breast
CPT/HCPCS: 77063; 77067

== ENCOUNTER 2020-11-30 22:13 | Outpatient (REF) | payer MEDICARE, MEDICAID, SELFPAY ==
[2020-11-30 18:39] LABS: HCT 37.1 % (36.0-46.0); HGB 12.1 g/dL (11.2-15.7); MCH 33.2 pg (27.0-33.0); MCHC 32.6 % (32.0-36.0); MCV 101.6 fL (80-95); MPV 9.3 fL (8.0-11.0); Platelet Count 371 10^3/uL (130-400); RBC 3.65 10^6/uL (3.93-5.22); RDW 13.3 % (11.7-14.6); RDW-SD 50.1 fL
[2020-11-30 20:58] LABS: ALT 20 U/L (14-59); AST 13 U/L (15-37); Albumin 4.5 g/dL (3.4-5.0); Alkaline Phosphatase 75 U/L (46-116); Anion Gap 9.1 mmol/L (3-11); BUN 10 mg/dL (7-18); Bilirubin, Total 0.3 mg/dL (0.2-1.0); CO2 26.9 mmol/L (21.0-32.0); CREATININE 0.8 mg/dL (0.55-1.02); Calcium 9.4 mg/dL (8.5-10.1); Chloride 104 mmol/L (98-107); Glucose 93 mg/dL (74-106); Potassium 3.8 mmol/L (3.5-5.1); Sodium 140 mmol/L (136-145); Total Protein 7.4 g/dL (6.4-8.2)
[2020-12-04 10:17] LABS: HIV-1/2 Ag & Ab Screen Negative (Negative)
== END 2020-11-30 22:14 | disposition home or self-care (01) ==
LOC: NCHCN 22:13
PROVIDERS: Visit Provider Family Medicine
DX: R63.4 Abnormal weight loss (principal); Z11.4 Encounter for screening for human immunodeficiency virus [HIV]
CPT/HCPCS: 80053; 85027; 87389

== ENCOUNTER 2020-12-08 04:30 | Outpatient (CLI) | payer MEDICARE, MEDICAID, SELFPAY ==
--- NOTE | 2020-12-08 14:15 | DI.CT_ITS ---
EXAM: CT CHEST W CLINICAL HISTORY: CHEST WALL PAIN,R07.89,SMOKER,F17.209,WT LOSS TECHNIQUE: Imaging Protocol: Axial computed tomography images with coronal and sagittal reformatted images were created and reviewed CONTRAST MATERIAL: Intravenous: Omnipaque 350 Contrast volume:70 mL. COMPARISON: CT CT CHEST/ABD/PEL W from 12/27/2019 FINDINGS: Tracheobronchial tree: Patent where visualized. Mediastinum and Vi: Calcified mediastinal lymph node consistent with prior granulomatous disease. No significant thoracic adenopathy. Pulmonary parenchyma: Moderate centrilobular pulmonary emphysema. There are calcified granuloma pres ent. No focal consolidating infiltrates. Pleura: No effusion or pneumothorax. Heart: The heart is not dilated. No coronary artery calcifications are seen. No pericardial effusion. Aorta: Thoracic aorta non-dilated. Mild atherosclerosis. Upper abdomen: Unremarkable. Lymph nodes: Within normal limits. Bones: Mild degenerative changes. No acute or healing fracture or dislocation. No suspicious lytic or sclerotic lesions. Soft tissues: Unremarkable. IMPRESSION: 1. No acute pulmonary process. 2. Findings consistent with prior granulomatous disease. 3. Moderate centrilobular pulmonary emphysema. RADIATION DOSE DELIVERED: 343.64mGy.cm Total DLP DATA REPOSITORY: All CT scans at this facility are submitted to the National Radiology Data Registry (NRDR) Dose Index Registry (DIR) with the [employer] (ACR). RADIATION OPTIMIZATION: All CT scans at this facility use at least one of these dose optimization te chniques: automated exposure control; mA and/or kV adjustment per patient size (includes targeted exa ms where dose is matched to clinical indication); or iterative reconstruction.
[2020-12-08] MEDS: Normal Saline - Diluent 50 ML VIAL IV (14:17)
[2020-12-08] MEDS: Omnipaque 350 MG/ML 50 ML BTL IJ ×2 (14:18)
== END 2020-12-08 04:50 ==
PROVIDERS: PCP Family Medicine; Visit Provider Family Medicine
DX: R07.89 Other chest pain (principal); F17.200 Nicotine dependence, unspecified, uncomplicated; R63.4 Abnormal weight loss; J43.8 Other emphysema
CPT/HCPCS: 71260; Q9967

== ENCOUNTER → 2021-01-25 14:19 | Outpatient (BNVA) | payer MEDICARE, MEDICAID, SELFPAY | PROVIDERS: PCP Family Medicine; Referring Provider Family Medicine; Visit Provider Physical Therapy Assistant | DX: K21.9 Gastro-esophageal reflux disease without esophagitis (principal) | CPT/HCPCS: 99213 ==

== ENCOUNTER 2021-01-31 03:24 | Outpatient (CLI) | payer MEDICARE, MEDICAID, SELFPAY ==
[2021-01-31 10:02] LABS: Source Nasal/Nares
[2021-01-31 14:18] LABS: COVID-19 PCR Negative (Negative)
== END 2021-01-31 03:25 | disposition home or self-care (01) ==
LOC: LBO 03:24
PROVIDERS: PCP Family Medicine; Visit Provider Surgery
DX: Z20.822 Contact with and (suspected) exposure to COVID-19 (principal); Z01.818 Encounter for other preprocedural examination
CPT/HCPCS: 87635

== ENCOUNTER 2021-02-02 13:16 | Day surgery (SDC) | payer MEDICARE, MEDICAID, SELFPAY ==
[2021-02-02 13:17] VITALS: BP 129/56; PULSE 73; RESP 16; TEMP 37; O2SAT 96
--- NOTE | 2021-02-02 13:41 | W.ANESPRE ---
General Info Date of Service Date Performed: 02/02/21 Height: 4 ft 10 in Weight: 45.019 kg Body Mass Index (BMI): 20.7 Surgical Procedure: Operation Date: 02/02/21 13:05 Proposed Procedures Side Surgeon p Gastroscopy Marixa Choi, DO Meds Allergies and Home Medications Allergies Allergy/AdvReac Type Severity Reaction Status Date / Time aspirin Allergy Mild Verified 02/02/21 13:30 latex Allergy Mild Skin Rash Unverified 02/02/21 13:30 cortisone [Cortisone] Allergy Itching Unverified 02/02/21 13:30 diphenhydramine HCl Allergy Hives Unverified 02/02/21 13:30 [From Benadryl] ibuprofen AdvReac Vomiting Unverified 02/02/21 13:30 venom-honey bee AdvReac Anaphylaxis Unverified 02/02/21 13:30 [bee venom (honey bee)] perfumes AdvReac nasal Uncoded 02/02/21 13:30 congestion Home Medication Medication Instructions Recorded calcium carbonate-vitamin D3 1 ea PO DAILY 07/25/14 cetirizine 10 mg PO DAILY tab-cap 07/25/14 cyanocobalamin (vitamin B-12) 1,000 mcg PO DAILY 07/25/14 epinephrine [EpiPen 2-Tomas] 0.3 mg IM ONCE 07/25/14 gabapentin 600 mg PO HS ml 07/25/14 lamotrigine [Lamictal] 275 mg PO DAILY tab-cap 07/25/14 omega 6-aay-uia-fish oil [Fish Oil] 1 cap PO DAILY 05/10/19 vit P-E1-R6-[id number]-H73-EWV-Q10 1 cap PO DAILY 05/10/19 albuterol sulfate 90 mcg/actuation 2 puff IH Q6H PRN 12/20/19 aerosol inhaler bupropion HCl 150 mg 24 hr tablet, 150 mg PO QAM 12/20/19 extended release turmeric 400 mg capsule 400 mg PO DAILY cap 12/20/19 umeclidinium 62.5 mcg/actuation 1 inh IH DAILY 12/20/19 blister powder for inhalation varenicline 0.5 mg tablet 0.5 mg PO BID 12/20/19 omeprazole 20 mg capsule,delayed 20 mg PO BID #60 cap 06/02/20 release albuterol sulfate 90 mcg/actuation 2 puff INHALATION Q6H PRN 01/25/21 aerosol inhaler mirtazapine 7.5 mg tablet 7.5 mg PO QHS 01/25/21 Current Visit Medications: Current Medications Generic Name Dose Route Start Last Admin Trade Name Freq PRN Reason Stop Dose Admin Ringer's Solution 1,000 mls @ 80 mls/hr 02/02/21 06:00 IV 03/03/21 23:59 INFUSION ELZA IV Miscellaneous Supplies 1 each 02/02/21 06:00 Iv Access IV 03/03/21 23:59 DIRECTED ELZA Sodium Chloride 0 ml 02/02/21 06:00 Normal Saline Flush 10 Ml Syr IV 03/03/21 23:59 PRN PRN PFSH Active Problems Active Problems: Problem Status Onset Code Abdominal pain R10.9 Unintentional weight loss R63.4 Medical History Medical History (Updated 02/02/21 @ 14:02 by Marixa Choi DO) Abdominal pain Alcohol dependence, in remission Allergic dermatitis Anal warts Anaphylactic reaction honey bee Anxiety Arthralgia Arthritis of right shoulder region Asthma Bipolar affective disorder Borderline personality disorder Chest wall pain Chronic low back pain Colorectal polyps COPD (chronic obstructive pulmonary disease) Cough Diverticulosis GERD (gastroesophageal reflux disease) Granulomatous lung disease Lactose intolerance Macrocytosis Migraines PTSD (post-traumatic stress disorder) Tobacco use Tubular adenoma of colon Unintentional weight loss Urinary incontinence Surgical History Surgical History History of colonoscopy (~05/10/19) History of shoulder surgery History of surgery on upper extremity R arm w/metal History of tubal ligation Tobacco Smoking/Tobacco Use Status: Current every day Tobacco Type: cigarettes Years smoked: 36 Alcohol Alcohol Intake: former Year quit: 2006 Substance Use Substance use: Daily Substance use type: marijuana Details: alcohol: 12 yeARS. Marijuana: t-1, one bowl Vital Signs and Lab Results Lab Results Blood Type / Crossmatch: No Data to Display Complete Blood Count: White Blood Count 9.50 10^3/uL (4.4-10.8) 11/30/20 16:15 11/30/20 Red Blood Count 3.65 10^6/uL (3.93-5.22) L 11/30/20 16:15 11/30/20 Hemoglobin 12.1 g/dL (11.2-15.7) 11/30/20 16:15 11/30/20 Hematocrit 37.1 % (36.0-46.0) 11/30/20 16:15 11/30/20 Platelet Count 371 10^3/uL (130-400) 11/30/20 16:15 11/30/20 Complete Metabolic Panel: Sodium Level 140 mmol/L (136-145) 11/30/20 16:15 11/30/20 Potassium Level 3.8 mmol/L (3.5-5.1) 11/30/20 16:15 11/30/20 Chloride Level 104 mmol/L (98-107) 11/30/20 16:15 11/30/20 Carbon Dioxide Level 26.9 mmol/L (21.0-32.0) 11/30/20 16:15 11/30/20 Blood Urea Nitrogen 10 mg/dL (7-18) 11/30/20 16:15 11/30/20 Creatinine 0.8 mg/dL (0.55-1.02) 11/30/20 16:15 11/30/20 Calcium Level 9.4 mg/dL (8.5-10.1) 11/30/20 16:15 11/30/20 Albumin 4.5 g/dL (3.4-5.0) 11/30/20 16:15 11/30/20 Glucose Level 93 mg/dL (74-106) 11/30/20 16:15 11/30/20 Liver Function Panel: Alanine Aminotransferase (ALT/SGPT) 20 U/L (14-59) 11/30/20 16:15 11/30/20 Aspartate Amino Transf (AST/SGOT) 13 U/L (15-37) L 11/30/20 16:15 11/30/20 Coagulation Panel: No Data to Display Cardiac Panel: Troponin I < 0.02 ng/mL (0.00-0.06) 06/21/18 19:58 06/21/18 Arterial Blood Gas: No Data to Display Venous Blood Gas: No Data to Display Pancreas Panel: No Data to Display Thyroid Panel: Thyroid Stimulating Hormone (TSH) 1.09 uIU/mL (0.36-3.74) 11/09/19 11:50 02/04/20 Infectious Disease: Coronavirus (COVID-19)(PCR) Negative (Negative) 01/31/21 08:34 01/31/21 Coronavirus 2019 Source Nasal/nares 01/31/21 08:34 01/31/21 HIV (1&2) Ag and Ab, 4th Generation Negative (Negative) 11/30/20 16:15 11/30/20 Blood Cultures: No Data to Display Toxicology Panel: Ethyl Alcohol Level < 3.0 mg/dL (<3) 06/21/18 17:26 06/21/18 Urine Amphetamines Screen Negative (Negative) 06/21/18 21:10 06/21/18 Urine Benzodiazepines Screen Negative (Negative) 06/21/18 21:10 06/21/18 Urine Barbiturates Screen Negative (Negative) 06/21/18 21:10 06/21/18 Urine Cocaine Screen Negative (Negative) 06/21/18 21:10 06/21/18 Urine Methadone Screen Negative (Negative) 06/21/18 21:10 06/21/18 Urine Opiates Screen Negative (Negative) 06/21/18 21:10 06/21/18 Ur Tricyclic Antidepressants Screen Negative (Negative) 06/21/18 21:10 06/21/18 Ur Tetrahydrocannabinol (THC) Scrn Positive (Negative) 06/21/18 21:10 06/21/18 Panel: No Data to Display Anesthesia Assessment and Plan Anesthesia History Personal History: No History of Anesthesia Complications Family History: No Family History of Anesthesia Complications Exercise Tolerance Exercise Tolerance: Metabolic Equivalents>4 Pertinent Negatives Pertinent Negatives: No Major Cardiovascular Symptoms or Complaints, No Major Pulmonary Symptoms or Complaints and No History of CVA/TIA Cardiac & Pulmonary Exam Cardiac Exam: Normal S1/S2 Heart Sounds Pulmonary Exam: Clear Bilateral Breath Sounds Airway Exam Known Difficult Airway: No Mallampati Class: 1 Mouth Opening: Normal (> 3cm) Thyromental Distance: Greater than 3 cm Neck Range of Motion: Full ROM Neck Circumference: Normal Teeth Condition: Edentulous ASA Classification ASA Score: ASA 1 ASA Emergency: No NPO Status NPO Status: NPO Clears >2 hours, Solids >8 hours Status Status: Not Relevant due to Medical History Anesthesia Plan Anesthesia Technique: General Anesthesia Airway Planned: Natural Airway Monitors Used: Standard Monitors
--- NOTE | 2021-02-02 13:52 | W.ANESPOSTOP ---
Postoperative Evaluation Date, Time and Location Date Performed: 02/02/21 Time Performed: 13:53 Patient Location: Day Surgery Unit Vital Signs Most Recent Imported Vital Signs: Most Recent Vital Signs Temp Pulse Resp BP Pulse Ox 37.0 C 73 16 129/56 L 96 02/02/21 13:17 02/02/21 13:17 02/02/21 13:17 02/02/21 13:17 02/02/21 13:17 Most Recent Manually Entered Vital Signs: Adult Blood Pressure: 101/66 Heart Rate: 74 Respirations: 14 Oxygen Saturation (%): 98 Temperature (C): 36.5 C Pain Score (0-10 Scale): 0 Pain Score Most Recent Pain Score: Most Recent Pain Score Pain Level 0 02/02/21 13:17 Assessment Mental Status: Awake (Alert & Oriented to Patient Baseline) Airway and Respiratory Function: Patent airway with normal (patient baseline) respiratory exam Cardiovascular Function: Hemodynamically Stable Hydration Status: Adequately Hydrated Nausea & Vomiting: No Nausea or Vomiting Pain: Pt. Denies Any Pain Peripheral Nerve Block: Patient did not receive a nerve block Teaching Patient Teaching: Discussed Safe Use of Pain Medication Given Likely or Known DOMINICK
--- NOTE | 2021-02-02 14:01 | W.PM.DSUDISC ---
Discharge Plan Disposition Patient Disposition: HOME Condition: Good Discharge Details Reason For Visit: stomach scope Attending Provider: Marixa Choi Primary Care Provider: Tenzin Espinoza Home Meds and New Rx's Prescriptions: Continued lamotrigine [Lamictal] 150 MG tablet 275 mg PO DAILY RF: 0 cetirizine 5 MG tablet 10 mg PO DAILY RF: 0 cyanocobalamin (vitamin B-12) 1,000 MCG tablet 1,000 mcg PO DAILY RF: 0 gabapentin 250 MG/5 ML solution 600 mg PO HS RF: 0 calcium carbonate-vitamin D3 1 EACH tablet 1 ea PO DAILY RF: 0 epinephrine [EpiPen 2-Tomas] 0.3 MG/0.3 ML auto-injector 0.3 mg IM ONCE RF: 0 Chantix 0.5 mg tablet 0.5 mg PO BID RF: 0 Incruse Ellipta 62.5 mcg/actuation blister with device 1 inh IH DAILY RF: 0 turmeric 400 mg capsule 400 mg PO DAILY RF: 0 albuterol sulfate [Ventolin HFA] 90 mcg/actuation HFA aerosol inhaler 2 puff IH Q6H PRNRF: 0 bupropion HCl [Wellbutrin XL] 150 mg tablet extended release 24 hr 150 mg PO QAM RF: 0 omeprazole 20 mg capsule,delayed release(DR/EC) 20 mg PO BID Qty: 60 RF: 1 mirtazapine 7.5 mg tablet 7.5 mg PO QHS RF: 0 albuterol sulfate [Ventolin HFA] 90 mcg/actuation HFA aerosol inhaler 2 puff inhalation Q6H PRNRF: 0 omega 6-wyq-dzk-fish oil [Fish Oil] 1,000 mg (120 mg-180 mg) Capsule 1 cap PO DAILY RF: 0 vit [id number]-Z2-D4-tfovq-A69-WSA-Q10 15 unit-15 mg- 12.5 mg-1 mg Capsule 1 cap PO DAILY RF: 0 Discharge Instructions Additional Instructions: DSU EGD Post-Op Instructions Instructions for Everyone who is given Anesthesia: For your safety, please do the following for the next twenty-four (24) hours: *Do Not operate a motor vehicle (car, truck, motorcycle, etc.) *Do Not drink alcoholic beverages or use any recreational drugs for the first 24 hours or while taking pain medications. The medications in your body may have a reaction that can be dangerous. *Do Not make any important decisions or sign any important papers. Findings: Follow up: 1. No lifting over 20 pounds or strenuous activity for the first 24 hours after your procedure. After 24 hours there are no restrictions on your activity but you may feel fatigued for a few days. 2. After you arrive home you may have a light meal and return to your normal diet as you can tolerate it without feeling sick to your stomach. 3. You may have a bloated, gaseous feeling in your belly (abdomen) after a colonoscopy. Passing gas and belching will help. Walking or lying down on your left side with your knees flexed may relieve the discomfort. 4. You may experience a sore throat after your procedure. Gargle with salt water 5 6 times a day for 24 to 48 hours or until the sensation is gone. Call the office at [phone] (Office) or [phone] (Hospital) right away if you notice any of the following: a.Vomiting of blood or ?coffee ground stools?. c.Severe belly (abdominal) pain. d.A hard distended belly (abdomen) and an inability to pass gas. 5. If there are questions regarding the findings of your procedure, please contact your doctor 6. If you are unable to contact your doctor with a problem, contact the hospital at [phone]. 7. Continue all your regular medications unless directed otherwise. I understand the above instructions and have no questions. Signature of Patient or Adult Escort Name of Responsible Adult Escort Signature of Nurse Date/Time Activity:: see above Diet:: see above Discharge Orders Discharge Orders: Discharge Order (Routine); Ordered 02/02/21 Ordered By: Marixa Choi DS: Diagnosis Discharge Diagnosis (1) Abdominal pain: Status: Acute (2) Unintentional weight loss: Status: Acute
[2021-02-02] MEDS: Lactated Ringers 1,000 ML 80 ML IV (14:08)
[2021-02-02 14:13] VITALS: BMI 20.7
--- NOTE | 2021-02-02 14:14 | W.PM.ENDDOP ---
Date of service: 02/02/21 Time of Service: 14:14 Endoscopy Report DATE OF PROCEDURE: 02/02/21 PRE-OP DIAGNOSIS: gerd POST-OP DIAGNOSIS: same PROCEDURE: egd SURGEON: Marixa Choi ANESTHESIA TYPE: General:No Airway PATHOLOGY: other COMPLICATIONS: None DISPOSITION: same day PROCEDURE DESCRIPTION: After informed consent was obtained the patient was take to the procedure room and placed in a supine position. Monitors were applied and a time out was done. The patients name, date of , procedure type, allergies to medications and metal in their body was reviewed. A bite block was placed and the patient was sedated. Once sedated and comfortable the gastroscope was advanced through the oropharynx which was grossly normal into the esophagus. The proximal and mid-esophagus were nl. In the distal esophagus there was nl noted. The scope was advanced into the stomach and through the pylorus into the 3rd portion of the duodenum. The duodenum was noted to be nl Biopsies were done all specimens are retrieved and no bleeding is noted. The scope was retracted back into the stomach and biopsies were done to rule out H. pylori. there is some mild gastritis/no ulcers. the scope was retroflexed. The cardia and fundus were noted to be normal. There small a hiatal hernia noted. The scope was retracted back into the esophagus and biopsies were done of the GE junction to rule out Yadav's. There is no esophageal erosions varices diverticular stricture apparent. There is some mild esophagitis at the GE junction. Biopsies are taken of this. The scope was removed and the patient was woken up and taken back to [facility] in stable condition. Follow up: PCP
--- NOTE | 2021-02-02 14:30 | STOM_PTH ---
PATIENT: Linda Moran LOC: [facility] U#:[id number] AGE/SX: 55/F ROOM: RE02/02/[address]: Marixa Choi : 1965 BED: DIS: 02/02/2021 SPEC #: [id number] RECD: 02/02/21 16:16 STATUS: DENYS RE #: [id number] RENATO: 02/02/21 14:[address]: Marixa Choi DEPT: Surgical Specimen RECD BY: Gaby Beasley ENTERED: 02/02/21 16:17 SP TYPE: STOMACH OTHR DR: Tenzin Espinoza Tissues: 1 - BIOPSY BOWEL 2 - STOMACH BIOPSY 3 - STOMACH BIOPSY 4 - ESOPHAGUS BIOPSY 5 - ESOPHAGUS BIOPSY Procedures: GROSS AND MICRO LEVEL 4 Comments: [id number]
--- NOTE | 2021-02-02 14:45 | W.ANESPOSTOP ---
Postoperative Evaluation Date, Time and Location Date Performed: 02/02/21 Time Performed: 14:46 Patient Location: Day Surgery Unit Vital Signs Most Recent Imported Vital Signs: Most Recent Vital Signs Temp Pulse Resp BP Pulse Ox 37.0 C 73 16 129/56 L 96 02/02/21 13:17 02/02/21 13:17 02/02/21 13:17 02/02/21 13:17 02/02/21 13:17 Most Recent Manually Entered Vital Signs: Adult Blood Pressure: 116/55 Heart Rate: 84 Respirations: 12 Oxygen Saturation (%): 96 Temperature (C): 36.5 C Pain Score (0-10 Scale): 0 Pain Score Most Recent Pain Score: Most Recent Pain Score Pain Level 0 02/02/21 13:17 Assessment Mental Status: Awake (Alert & Oriented to Patient Baseline) Airway and Respiratory Function: Patent airway with normal (patient baseline) respiratory exam Cardiovascular Function: Hemodynamically Stable Hydration Status: Adequately Hydrated Nausea & Vomiting: No Nausea or Vomiting Pain: Pt. Denies Any Pain Peripheral Nerve Block: Patient did not receive a nerve block
[2021-02-02 14:47] VITALS: BP 116/55; PULSE 84; RESP 12; TEMPC 36.5; O2SAT 96
[2021-02-02 14:48] VITALS: BP 116/55; PULSE 80; RESP 18; TEMP 36.7; O2SAT 95
[2021-02-02 15:15] VITALS: BP 134/64; PULSE 70; RESP 20; TEMP 36.9; O2SAT 99
== END 2021-02-02 15:55 | disposition home or self-care (01) ==
PROVIDERS: PCP Family Medicine; Visit Provider Surgery
PROC: 0DJ68ZZ Inspection of Stomach, Via Natural or Artificial Opening Endoscopic (ICD-10-PCS; CPT 43235; principal; 2021-02-02 13:00)
DX: K29.70 Gastritis, unspecified, without bleeding (principal); K44.9 Diaphragmatic hernia without obstruction or gangrene; K21.00 Gastro-esophageal reflux disease with esophagitis, without bleeding; R63.4 Abnormal weight loss; F17.210 Nicotine dependence, cigarettes, uncomplicated; J44.9 Chronic obstructive pulmonary disease, unspecified
CPT/HCPCS: 43239; 88305; J2704

== ENCOUNTER 2021-07-06 02:31 | Outpatient (CLI) | payer MEDICARE, MEDICAID, SELFPAY ==
--- NOTE | 2021-07-06 | DI.RAD_ITS ---
Exam(s) XR SACRUM EXAM: XR SACRUM CLINICAL HISTORY: SACRAL BACK PAIN,M54.89,POINT TENDERNESS OVER SACRUM. TECHNIQUE: 2D digital imaging was performed. Two views were obtained. COMPARISON: No exams were available for comparison FINDINGS: BONES: No acute fracture is present. No bony destructive lesion is seen. JOINTS: No dislocation present. The sacroiliac joints are well maintained. No ankylosis or erosions are seen. No joint space narrowing. Mild degenerative changes are seen at the L5-S1 disc space. SOFT TISSUE: Normal. Atherosclerosis. IMPRESSION: 1. Unremarkable sacrum. 2. Mild degenerative changes at L5-S1. DATA REPOSITORY: RADIATION DOSE DELIVERED:
--- NOTE | 2021-07-06 | DI.RAD_ITS ---
Exam(s) XR HIP PELVIS ADULT BL EXAM: XR HIP PELVIS ADULT BL CLINICAL HISTORY: SACRAL BACK PAIN,M54.89,HIP TO LOW BACK. TECHNIQUE: 2D digital imaging was performed of the pelvis and bilateral hips. Three images were obt ained. AP pelvis and lateral views of both hips were obtained. COMPARISON: No exams were available for comparison FINDINGS: BONES: No acute fracture is present. No bony destructive lesion is seen. JOINTS: No dislocation present. SOFT TISSUE: Normal. Atherosclerosis. IMPRESSION: Unrmarkable radiographs of bilat hips. Unremarkable radiographs of the pelvis DATA REPOSITORY: RADIATION DOSE DELIVERED:
== END 2021-07-06 02:51 ==
PROVIDERS: PCP Family Medicine; Visit Provider Family Medicine
DX: M54.89 Other dorsalgia (principal); M47.817 Spondylosis without myelopathy or radiculopathy, lumbosacral region
CPT/HCPCS: 73521; 72220

== ENCOUNTER 2021-08-08 07:51 | Outpatient (REF) | payer MEDICARE, MEDICAID, SELFPAY ==
[2021-08-10 14:22] LABS: COVID-19 RT-PCR UVMMC Result Negative (Negative)
== END 2021-08-08 07:52 | disposition home or self-care (01) ==
LOC: LBN 07:51
PROVIDERS: PCP Family Medicine; Visit Provider Physician Assistant Medical
DX: Z20.822 Contact with and (suspected) exposure to COVID-19 (principal); R05.8 Other specified cough
CPT/HCPCS: U0003

== ENCOUNTER 2021-09-05 13:52 | Outpatient (CLI) | payer MEDICARE, MEDICAID, SELFPAY ==
--- NOTE | 2021-09-05 14:37 | DI.RAD_ITS ---
Exam(s) XR FOOT RT COMPLETE EXAM: XR FOOT RT COMPLETE CLINICAL HISTORY: RT FOOT PAIN M79.671, TENDER 4TH-5TH METATARSALS SINCE ANKLE SPRAIN. TECHNIQUE: 2D digital imaging was performed of the right foot. Three images were obtained. AP, obl ique and lateral views were obtained. COMPARISON: No exams were available for comparison FINDINGS: BONES: No acute fracture is present. No bony destructive lesion is seen. JOINTS: No dislocation present. SOFT TISSUE: Mild soft tissue swelling of the foot laterally. IMPRESSION: 1. No acute or healing fracture or dislocation. 2. Mild lateral soft tissue swelling. DATA REPOSITORY: RADIATION DOSE DELIVERED:
== END 2021-09-05 14:12 ==
PROVIDERS: PCP Family Medicine; Visit Provider Family Medicine
DX: M79.671 Pain in right foot (principal); R22.41 Localized swelling, mass and lump, right lower limb
CPT/HCPCS: 73630

== ENCOUNTER 2021-12-21 19:42 | Outpatient (REF) | payer MEDICARE, MEDICAID, SELFPAY ==
[2021-12-21 20:09] LABS: HCT 37.8 % (36.0-46.0); HGB 11.9 g/dL (11.2-15.7); MCH 32.6 pg (27.0-33.0); MCHC 31.5 % (32.0-36.0); MCV 103.6 fL (80-95); Platelet Count 328 10^3/uL (130-400); RBC 3.65 10^6/uL (3.93-5.22); RDW 12.8 % (11.7-14.6); RDW-SD 48.8 fL
[2021-12-21 20:21] LABS: ESR 7 mm/hr (0-30)
[2021-12-21 20:33] LABS: CREATININE 0.7 mg/dL (0.55-1.02)
== END 2021-12-21 19:43 | disposition home or self-care (01) ==
LOC: NCHCN 19:42
PROVIDERS: PCP Family Medicine; Visit Provider Family Medicine
DX: G43.109 Migraine with aura, not intractable, without status migrainosus (principal); D75.89 Other specified diseases of blood and blood-forming organs
CPT/HCPCS: 85027; 85652; 82565

== ENCOUNTER 2022-01-16 02:01 | Outpatient (CLI) | payer MEDICARE, MEDICAID, SELFPAY ==
--- NOTE | 2022-01-16 | DI.CTLCSR_ITS ---
Exam(s) CT CHEST LUNG CANCER SCREEN EXAM: CT CHEST LUNG CANCER SCREEN CLINICAL HISTORY: SCREENING FOR LUNG CA, CURRENT SMOKER, F17.210 TECHNIQUE: Imaging Protocol: Axial computed tomography images with coronal and sagittal reformatted images were created and reviewed COMPARISON: CT CT CHEST W from 12/08/2020 FINDINGS: Tracheobronchial tree: Patent where visualized. Mediastinum and Vi: No dominant adenopathy or fluid collection. Pulmonary parenchyma: No consolidation or dominant measurable mass. Moderate centrilobular emphysema upper lobes. Mild apical scarring. Lung Nodules: 3 millimeter nodule anteromedial left upper lobe. Calcified granulomas right upper and lower lobes. Pleura: No effusion or pneumothorax. Heart: The heart is not dilated. No coronary artery calcifications are seen. Aorta: Thoracic aorta non-dilated. Upper abdomen: Unremarkable. Bones: Within normal limits. Soft Tissues: Unremarkable. IMPRESSION: 3 millimeter left upper lobe nodule. Calcified granulomas. Emphysematous changes. Lung RADS Cat 2 - Benign Appearance / Behavior: Nodules with a very low likelihood of becoming a clin ically active cancer due to size or lack of growth Lung-RADS 1.0 CATEGORIES: Category 0 - Prior chest CT exam(s) being located for comparison. Category 1 - Annual screening in 12 months. No nodules or definitely benign nodules. Category 2 - Annual screening in 12 months. Benign appearance. Nodules with low likelihood of becomin g active cancer. Category 3 - 6-month follow-up. Probably benign. Short-term follow-up suggested. Nodules with low lik elihood of becoming active cancer. Category 4A - 3-month follow-up and CT/PET if >8 mm in size. Suspicious finding. Findings which requi re additional testing. Category 4B - Findings which require additional testing and tissue sampling. Category 4X - Category 3 or 4 nodules with additional features or imaging findings that increases the suspicion of malignancy. Modifier S- Potentially clinically significant findings (non lung cancer) RADIATION DOSE DELIVERED: 72.89mGy.cm Total DLP 1.84mGy CTDIvol DATA REPOSITORY: All CT scans at this facility are submitted to the National Radiology Data Registry (NRDR) Dose Index Registry (DIR) with the [employer] (ACR). RADIATION OPTIMIZATION: All CT scans at this facility use at least one of these dose optimization te chniques: automated exposure control; mA and/or kV adjustment per patient size (includes targeted exa ms where dose is matched to clinical indication); or iterative reconstruction.
== END 2022-01-16 02:21 ==
PROVIDERS: PCP Family Medicine; Visit Provider Family Medicine
DX: Z12.2 Encounter for screening for malignant neoplasm of respiratory organs (principal); F17.210 Nicotine dependence, cigarettes, uncomplicated; J43.2 Centrilobular emphysema; J98.4 Other disorders of lung; R91.1 Solitary pulmonary nodule
CPT/HCPCS: 71271

== ENCOUNTER 2022-01-29 16:01 | Outpatient (REF) | payer MEDICARE, MEDICAID, SELFPAY ==
[2022-01-29 17:11] LABS: ALT 7 U/L (14-59); AST 13 U/L (15-37); Albumin 4.1 g/dL (3.4-5.0); Alkaline Phosphatase 76 U/L (46-116); Anion Gap 7.4 mmol/L (3-11); BUN 18 mg/dL (7-18); Bilirubin, Total 0.2 mg/dL (0.2-1.0); CO2 28.6 mmol/L (21.0-32.0); CREATININE 0.8 mg/dL (0.55-1.02); Calcium 8.9 mg/dL (8.5-10.1); Chloride 105 mmol/L (98-107); Creatine Kinase 51 U/L (26-192); Glucose 97 mg/dL (74-106); Sodium 141 mmol/L (136-145); Total Protein 6.6 g/dL (6.4-8.2)
[2022-01-29 17:14] LABS: ESR 5 mm/hr (0-30)
== END 2022-01-29 16:02 | disposition home or self-care (01) ==
LOC: NCHCN 16:01
PROVIDERS: PCP Family Medicine; Visit Provider Family Medicine
DX: M79.18 Myalgia, other site (principal)
CPT/HCPCS: 80053; 82550; 85652

== ENCOUNTER → 2022-04-22 00:07 | Outpatient (CLI) | payer MEDICARE, MEDICAID, SELFPAY ==
--- OUTSIDE RECORDS SUMMARY | 2022-04-22 00:15 | XMS_ITS | Encounter Summary ---
:1965 Author Organization [facility] Address [address] [place] [address] Care Team Providers Name Role Phone Unavailable Primary Care Provider Unavailable Encounter Details Date Type Department Care Team Description 02/24/2001 Results Only [facility] - Anish Noel, CN conversion [address] [place] [address] [place] [address] Social History Tobacco Use Types Packs/Day Years Used Date Never Assessed Sex Assigned at Date Recorded Not on file documented as of this encounter Plan of Treatment Not on filedocumented as of this encounter Procedures Procedure Name Priority Date/Time Associated Diagnosis Comme nts CYTOPATHOLOGY Routine 02/24/2001 0:00 EDT Results for this procedure are i n the results section . documented in this encounter Results CYTOPATHOLOGY (02/24/2001 0:00 EDT) Pathology Report: CYTOPATHOLOGY REPORT [facility] Reports generated via electronic interface contain mis ginal data; however they are lacking the format of the original re port. Caution should be taken when reading/interpreting unfo rmatted reports. Name: ? ISRAEL SEGUNDO ? Accession #: ? [id number] : ? 1965 (Age: 35) ??F ?Collect Date: ? 02/04 Location: ? [facility] ? Receive Date : ? 02/26/2001 Provider: ?ANISH PEREZ [facility] Copy to: ?JUSTINA RODNEY-PAGE ANP ? Specimen/Source: ?ThinPrep Pap Test, Cervix/ Endocervix Last Menstrual Period: ? 02/18/01 ? SPECIMEN ADEQUACY ? Satisfactory for evaluation. GENERAL CATEGORIZATION ? Within Normal Limits ? Document reviewed and electronically signed by: ? FAWAD Lopes(ASCP) ? Report Date: ??02/26/2001 15:22 End of Report Specimen Performing Organization Address City/State/ZIP Code Phon e Number [facility] [address] [phone] SERVICES [facility] [address] [place] [address] documented in this encounter Visit Diagnoses Not on filedocumented in this encounter
--- OUTSIDE RECORDS SUMMARY | 2022-04-22 00:15 | XMS_ITS | Encounter Summary ---
:[address] [facility] Address [address] [place] [address] Care Team Providers Name Role Phone Unavailable Primary Care Provider Unavailable Encounter Details Date Type Department Care Team Description 02/01/2009 Orders Only [facility] - [place] Sammi Lopez MD Laboratory Services - [facility] [address] [place] [address] [place], [place] [id number] [phone] Social History Tobacco Use Types Packs/Day Years Used Date Never Assessed Sex Assigned at Date Recorded Not on file documented as of this encounter Plan of Treatment Not on filedocumented as of this encounter Procedures Procedure Name Priority Date/Time Associated Comments Diagnosis HPV DETECTION, HIGH Routine 02/01/2009 10:19 Resu lts for this RISK TYPES EDT procedure are i n the results section. CYTOPATHOLOGY Routine 02/01/2009 0:00 Results for this EDT procedure are i n the results section. documented in this encounter Results HUMAN PAPILLOMA VIRUS DNA TEST (02/01/2009 10:19 EDT) Specimen Description Cervix, ThinPrep [facility] vial Result Negative for HPV [facility] types 16, 18, 31, 33, 35, 39, 45, 51, 52, 56, 58, 59, and 68. Report Status Final [facility] 02/09/2009 Specimen Performing Organization Address City/State/ZIP Code Phon e Number [facility] [address] [place] [address] SERVICES [facility] [address] [place] [address] CYTOPATHOLOGY (02/01/2009 0:00 EDT) Pathology Report: CYTOPATHOLOGY REPORT ? [facility] ? LAB Reports generated via electr onic interface contain original data; ? however they are lacking the format of the original report. ? Caution should be taken when reading/interpreting unformatted reports. ? Name: ? ISRAEL SEGUNDO ? Accession #: ? [id number] ? : ? 1965 (Age: 43) ??F ?Collect Date: ? 02/01/2009 ? Location: ? [facility] ? Receive Date: ? 02/03/2009 ? Provider: ?SAMMI READY MD ? Copy to: ? Specimen/Source: ? Pap Test, Cervix/Endocervix, ThinPrep Imaging System ? with manual evaluation ? Last Menstrual Period: ? 4/24/09 ? Previous Gynecologic Patholo gy: ? Yes: hx abnormnal paps ? Other: ? HPVDX - HPV testing requeste d regardless of diagnosis on current ThinPrep Pap ?? test. ? SPECIMEN ADEQUACY ? Satisfactory for Eval uation ? - transformation zone compon ent present ? GENERAL CATEGORIZATION ? Other, see interpreta tion ? INTERPRETATION ? Endometrial cells pre sent in a woman equal to or greater than age 40. ? Negative for Intraepithelial Lesion. ? EDUCATIONAL NOTES/RECOMMENDA TIONS ? Benign appearing endo metrial cells on Pap tests are usually a normal ? finding in women with regula r menstrual cycles, especially if the Pap test was ?? collected during the first h nathan of the menstrual cycle. ? There is data showing that e ndometrial cells on Pap tests may be associated with endometrial/uterine abnormal ities in post menopausal women or in perimenopausal women with abnormal bleeding . ? There is limited data on the significance of benign endometrial cells in post ?? menopausal women on HRT. ??C linical correlation is recommended. ? Note: ??The Pap test is not an accurate test for the screening of endometrial ? lesions and should not be us ed as a follow up in patients with clinical ? suspicion of endometrial pat hology. ? Document reviewed and electr onically signed by: ? Vinicius Stumler, CT( CP) ? Report Date: ??05/04/ 2009 14:16 ? End of Report ? Specimen Performing Organization Address City/State/ZIP Code Phon e Number [facility] [address] [place] [address] SERVICES [facility] [address] [place] [address] documented in this encounter Visit Diagnoses Not on filedocumented in this encounter
--- OUTSIDE RECORDS SUMMARY | 2022-04-22 00:15 | XMS_ITS | Encounter Summary ---
:1965 Author Organization [facility] Address [address] [place] [address] Care Team Providers Name Role Phone Unavailable Primary Care Provider Unavailable Encounter Details Date Type Department Care Team Description 05/10/2019 Results Only [facility]- Gertrude Arredondo, [address] [address] [address] [place], [place] [id number] (Wo rk) Social History Tobacco Use Types Packs/Day Years Used Date Never Assessed Sex Assigned at Date Recorded Not on file documented as of this encounter Plan of Treatment Not on filedocumented as of this encounter Procedures Procedure Name Priority Date/Time Associated Diagnosis Comme nts SURGICAL PATHOLOGY Routine 05/10/2019 15:35 Resul ts for this EDT procedure are i n the results section. documented in this encounter Results SURGICAL PATHOLOGY (05/10/2019 15:35 EDT) Pathology Report: SURGICAL PATHOLOGY REPORT [facility] Reports generated via electronic interface contain mis ginal data; LABORATORY however they are lacking the format of the original re port. SERVICES Caution should be taken when reading/interpreting unfo rmatted reports. Name: ? ISRAEL SEGUNDO ? Accession #: ? [id number] ? : ? 1965 (Age: [age]) ??F ? Collect Date: ? 05/10/2019 ? Location: ? [facility] ? Receive Date: ? 9 ? Provider: GERTRUDE ZAZUETA MD Copy to: LUIS BRADLEY MD ? Final Pathologic Diagnosis: gA. COLON, CECUM, POLYP, BIOPSY: - Colonic mucosa with no significant diagnostic abnorm ality. - No definite polyp identified (Deeper sections x3 exa mined). B. COLON, ASCENDING, POLYP, BIOPSY: - Tubular adenoma, multiple fragments. C. COLON, DESCENDING, POLYP, BIOPSY: - Hyperplastic polyp. D. COLON, SIGMOID, POLYP, BIOPSY: - Tubular adenoma. Document reviewed and electronically signed by: PHILIP LINARES MD Report ??Date: 05/11/2019 16:21 By the signature above, the attending physician certif ies that he/she has personally conducted a gross and/or microscopic examin ation of the described specimens and rendered or confirmed the above diagnosi s. Specimen(s) Received: A. ??Cecal polyp B. ??Ascending colon polyp x2 C. ??Descending colon polyp D. ??Sigmoid polyp Clinical History: Screening Gross Description: A. ?Received in formalin labelled with proper p atient identification (initials R, R) and cecal p olyp are two fragments of matos tissue measuring 0.2 x 0.2 x 0.2 cm. The specimens are submitted entirely i n A1. B. ?Received in formalin labelled with proper p atient identification (initials R, R) and ascendi ng colon polyp are multiple fragments of matos tissue ranging from 0.3-0.6 cm in greatest dimension. The spe cimens are submitted entirely in B1-B2. C. ?Received in formalin labelled with proper p atient identification (initials R, R) and descending colon polyp are two f ragments of matos tissue measuring 0.2 x 0.2 x 0.2 cm. The specimens are submit kieran entirely in C1. D. ?Received in formalin labelled with proper p atient identification (initials R, R) and sigmoid polyp are three fragments of pink tissue measuring 0.3 x 0.2 x 0.2 cm. The specimens are submitted entire ly in D1. REENA Salazar (ASCP) 05/10/2019 4:09 PM End of Report Specimen Performing Organization Address City/State/ZIP Code Phon e Number [facility] [address] [place] [address] SERVICES documented in this encounter Visit Diagnoses Not on filedocumented in this encounter
--- OUTSIDE RECORDS SUMMARY | 2022-04-22 00:15 | XMS_ITS | Encounter Summary ---
:1965 Author Organization [facility] Address [address] [place] [address] Care Team Providers Name Role Phone Unavailable Primary Care Provider Unavailable Encounter Details Date Type Department Care Team Description 05/10/2019 Hospital Encounter [facility] MD Beth [address] [place] [address] [place] [address] [place], [place] [phone] (Wo rk) Social History Tobacco Use Types Packs/Day Years Used Date Never Assessed Sex Assigned at Date Recorded Not on file documented as of this encounter Discharge Diagnoses Diagnosis Z00.00 Encounter for general adult medic al examination without abnormal findings-Z00.00[ICD-10-CM] documented in this encounter Discharge Disposition Disposition Code Departure Means Destination Home or Self Care documented in this encounter Plan of Treatment Not on filedocumented as of this encounter Visit Diagnoses Not on filedocumented in this encounter
--- OUTSIDE RECORDS SUMMARY | 2022-04-22 00:15 | XMS_ITS | Encounter Summary ---
:1965 Author Organization [facility] Address [address] [place] [address] Care Team Providers Name Role Phone Unavailable Primary Care Provider Unavailable Encounter Details Date Type Department Care Team Description 01/22/2001 Results Only [facility] - Anish Noel, CN conversion [address] [place] [address] [place] [address] Social History Tobacco Use Types Packs/Day Years Used Date Never Assessed Sex Assigned at Date Recorded Not on file documented as of this encounter Plan of Treatment Not on filedocumented as of this encounter Procedures Procedure Name Priority Date/Time Associated Diagnosis Comme nts CYTOPATHOLOGY Routine 01/22/2001 0:00 EDT Results for this procedure are i n the results section . documented in this encounter Results CYTOPATHOLOGY (01/22/2001 0:00 EDT) Pathology Report: CYTOPATHOLOGY REPORT [facility] Reports generated via electronic interface contain mis ginal data; however they are lacking the format of the original re port. Caution should be taken when reading/interpreting unfo rmatted reports. Name: ? ISRAEL SEGUNDO ? Accession #: ? [id number] : ? 1965 (Age: 35) ??F ?Collect Date: ? 01/04 Location: ? [facility] ? Receive Date : ? 01/26/2001 Provider: ?ANISH PEREZ CNM Copy to: ? Specimen/Source: ?ThinPrep Pap Test, Cervix/ Endocervix Last Menstrual Period: ? 12/23/00 ? SPECIMEN ADEQUACY ? Unsatisfactory for evaluation, acellular sample . GENERAL CATEGORIZATION ? Unsatisfactory Recommend repeat Pap test or further follow up, as cli nically indicated. ? Document reviewed and electronically signed by: ? FAWAD Ornelas(ASCP) ? Report Date: ??01/28/2001 15:33 End of Report Specimen Performing Organization Address City/State/ZIP Code Phon e Number [facility] [address] [place] [address] SERVICES [facility] [address] [place] [address] documented in this encounter Visit Diagnoses Not on filedocumented in this encounter
--- OUTSIDE RECORDS SUMMARY | 2022-04-22 00:15 | XMS_ITS | Encounter Summary ---
:1965 Author Organization [facility] Address [address] [place] [address] Care Team Providers Name Role Phone Unavailable Primary Care Provider Unavailable Encounter Details Date Type Department Care Team Description 04/24/2018 Results Only [facility]- Luis Clifford MD [phone] [address] [place], [place] [id number] (Wo rk) Social History Tobacco Use Types Packs/Day Years Used Date Never Assessed Sex Assigned at Date Recorded Not on file documented as of this encounter Plan of Treatment Not on filedocumented as of this encounter Procedures Procedure Name Priority Date/Time Associated Diagnosis Comme nts PAP TEST- RESULT Routine 04/24/2018 0:00 EDT Resu lts for this ONLY procedure are i n the results section. documented in this encounter Results PAP TEST- RESULT ONLY (04/24/2018 0:00 EDT) Pathology Report: CYTOPATHOLOGY REPORT [facility] Reports generated via electronic interface contain mis ginal data; SERVICES however they are lacking the format of the original re port. Caution should be taken when reading/interpreting unfo rmatted reports. Name: ? ISRAEL SEGUNDO ? Accession #: ? [id number] ? : ? 1965 (Age: [age]) ??F ?Collect Date: ? 04/24/2018 ? Location: ? [facility] ? Receive Date: ? 04/28/20 18 ? Provider: LUIS BRADLEY MD Copy to: ? Final Report SPECIMEN ADEQUACY ? Satisfactory for Evaluation - transformation zone component absent GENERAL CATEGORIZATION ? Negative for Intraepithelial Lesion or Malignan cy ?? Last Menstrual Period: 2013 Specimen/Source: ??Pap Test, Cervix, ThinPrep Imaging System with manual evaluation Document reviewed and electronically signed by: ? Gladys Britt, CT(ASCP) ? Report ??Date: 05/07/2018 11:25 HPV with Pap Test ? Date Ordered: ? 05/07/2018 ? Status: ?? S igned Out ?Date Complete: ? 05/08/2018 ? By: ??Sys tem Interface ? Date Reported: ? 05/08/2018 ? Interpretation RESULT: Negative for HPV. No E6 or E7 mRNA is detected from HPV types 16,18,31,3 3,35, 39,45,51,52,56,58,59,66, and 68 by dielectric tester media kieran amplification. Comments Document reviewed and electronically signed by: ? System Interface ? Report date: 05/08/2018 By the signature above, the attending physician certif ies that he/she has personally conducted a gross and/or microscopic examin ation of the described specimens and rendered or confirmed the above diagnosi s. End of Report Specimen Performing Organization Address City/State/ZIP Code Phon e Number [facility] [address] [place] [address] SERVICES documented in this encounter Visit Diagnoses Not on filedocumented in this encounter
--- OUTSIDE RECORDS SUMMARY | 2022-04-22 00:15 | XMS_ITS | Encounter Summary ---
:1965 Author Organization [facility] Address [address] [place] [address] Care Team Providers Name Role Phone Tenzin Espinoza MD Primary Care Provider Encounter Details Date Type Department Care Team Description 08/09/2021 Lab Requisition [facility] Outr Resulting Lab, Pathology & Laboratory Provider [facility] [address] [place], [place] [address] Social History Tobacco Use Types Packs/Day Years Used Date Never Assessed Sex Assigned at Date Recorded Not on file documented as of this encounter Plan of Treatment Not on filedocumented as of this encounter Procedures Procedure Name Priority Date/Time Associated Diagnosis Comme nts COVID-19 TEST [facility] Today 08/08/2021 11:30 LAB PCR EDT COVID-19 TESTING Routine 08/08/2021 11:30 Results for this EDT procedure are i n the results section. documented in this encounter Results COVID-19 TEST [facility] LAB PCR (08/08/2021 11:30 EDT) Specimen Swab - Entire nasopharynx (body structur e) Performing Organization Address City/State/ZIP Code Phon e Number [facility] [address] [place] [address] SERVICES COVID-19 TESTING (08/08/2021 11:30 EDT) COVID-19 rt-PCR Negative Negative [facility] Result Comment: [facility] This test has not been FDA c leared or approved. This test has been authorized by FDA under an EUA for use by authorized laboratories. This test has been authorized only for detection of nucleic acid fro SERVICES m 2018-nCoV, not for any oth er viruses or pathogens. This test is only authorized for the duration of the declaration that circumstances exist justifying the authorization of emergency use of in vitro d iagnostic tests for detectio n and/or diagnosis of 2019-nCoV under section 564(b)(1) of Act, 21 U.S.C ?? 360bbb-3(b) (1), unless the authorization is terminated or revoked sooner. Negative results do not prec lude 2019-nCoV infection and should not be used as the sole basis for treatment or other patient management decisions. Negative results must be combined with clinical observa tions, patient history, and epidemiological informatio n. This test was developed and its performance characteristics determined by [facility]. It has not been cleared or approved by the US Food and Drug Administration. FDA does not require this test to go through premarket FDA review. This t est is used for clinical purposes. It should not be regarded as investigational or for research. This laboratory is certified under the Clinical Laboratory Improvement Amendm ents (CLIA) as qualified to perform high complexity clinical laboratory testing. This test is based on the CD C COVID-19 Emergency Use Authorization (EUA) assay, with minor modification as defined by the FDA Performed on the Nimiao 7 Pro RT-PCR System. Performing Lab [facility] Lab [facility] SERVICES Specimen Swab Performing Organization Address City/State/ZIP Code Phon e Number [facility] [address] [place] [address] SERVICES documented in this encounter Visit Diagnoses Not on filedocumented in this encounter Care Teams Counseling Aide Relationship Specialty Start Date End Date Tenzin Espinoza MD PCP - General 05/11/19 [address] [place], [place] [id number] documented as of this encounter
--- OUTSIDE RECORDS SUMMARY | 2022-04-22 00:15 | XMS_ITS | Clinical Summary ---
:1965 Author Organization [facility] Address [address] [place] [address] Care Team Providers Name Role Phone Tenzin sEpinoza MD Primary Care Provider Social History Tobacco Use Types Packs/Day Years Used Date Never Assessed Sex Assigned at Date Recorded Not on file Plan of Treatment Not on file Insurance Payer Benefit Plan / Subscriber ID Effective Phone Address T ype Group Dates MEDICARE MEDICARE A/B [id number] 2008-Prese [address] Medicare GL nt [facility] [address] [place] [id number] 2021-Pres [address] Medicaid [place] [facility] [place] [address] Care Teams Double Needle Operator Relationship Specialty Start Date End Date Tenzin Espinoza MD PCP - General 05/11/19 [address] [place], [place] [id number]
--- OUTSIDE RECORDS SUMMARY | 2022-04-22 00:15 | XMS_ITS | Encounter Summary ---
:1965 Author Organization [facility] Address [address] [place] [address] Care Team Providers Name Role Phone Unavailable Primary Care Provider Unavailable Encounter Details Date Type Department Care Team Description 08/02/2011 Results Only [facility] Julissa Woods, DEJA Laboratory Services - [address] [place] [address] [address] [place] [address] [place], [place] [address] [phone] Social History Tobacco Use Types Packs/Day Years Used Date Never Assessed Sex Assigned at Date Recorded Not on file documented as of this encounter Plan of Treatment Not on filedocumented as of this encounter Procedures Procedure Name Priority Date/Time Associated Diagnosis Comme nts PAP TEST- RESULT Routine 08/02/2011 0:00 EDT Resu lts for this ONLY procedure are i n the results section. documented in this encounter Results PAP TEST- RESULT ONLY (08/02/2011 0:00 EDT) Pathology Report: CYTOPATHOLOGY REPORT [facility] Reports generated via electronic interface contain mis ginal data; however they are lacking the format of the original re port. Caution should be taken when reading/interpreting unfo rmatted reports. Name: ? ISRAEL SEGUNDO ? Accession #: ? [id number] : ? 1965 (Age: 46) ??F ?Collect Date: ? 07/07 Location: ? [facility] ? Receive Date : ? 08/06/2011 Provider: ?ANISH WOODS BOBBIN TRUCKER Copy to: ? Specimen/Source: ? Pap Test, Cervix/Endocervix, ThinPrep Imaging System with manual evaluation Last Menstrual Period: ? 07/07/2011 Hormonal/Contraceptive Status: ? Tubal ligation Other: ? Additional clinical information: freq abn paps, curren tly has genital warts ? SPECIMEN ADEQUACY ? Satisfactory for Evaluation - transformation zone component present GENERAL CATEGORIZATION ? Negative for Intraepithelial Lesion or Malignan cy ? Document reviewed and electronically signed by: ? FAWAD Bryan(ASCP) ? Report Date: ??08/13/2011 11:34 End of Report Specimen Performing Organization Address City/State/ZIP Code Phon e Number [facility] [address] [place] [address] SERVICES [facility] [address] [place] [address] documented in this encounter Visit Diagnoses Not on filedocumented in this encounter
--- OUTSIDE RECORDS SUMMARY | 2022-04-22 00:15 | XMS_ITS | Encounter Summary ---
:1965 Author Organization [facility] Address [address] [place] [address] Care Team Providers Name Role Phone Unavailable Primary Care Provider Unavailable Encounter Details Date Type Department Care Team Description 09/18/2012 Results Only [facility] Julissa Woods, DEJA Laboratory Services - [address] [place] [address] [address] [place] [address] [place], [place] [address] [phone] Social History Tobacco Use Types Packs/Day Years Used Date Never Assessed Sex Assigned at Date Recorded Not on file documented as of this encounter Plan of Treatment Not on filedocumented as of this encounter Procedures Procedure Name Priority Date/Time Associated Diagnosis Comme nts PAP TEST- RESULT Routine 09/18/2012 0:00 EST Resu lts for this ONLY procedure are i n the results section. documented in this encounter Results PAP TEST- RESULT ONLY (09/18/2012 0:00 EST) Pathology Report: CYTOPATHOLOGY REPORT [facility] Reports generated via electronic interface contain mis ginal data; however they are lacking the format of the original re port. Caution should be taken when reading/interpreting unfo rmatted reports. Name: ? ISRAEL SEGUNDO ? Accession #: ? [id number] ? : ? 1965 (Age: 47) ??F ?Collect Da te: ? 09/18/2012 ? Location: ? [facility] ? Receive Date: ? 012 ? Provider: ANISH WOODS DENTAL APPLIANCE MECHANIC Copy to: ? Final Report SPECIMEN ADEQUACY ? Satisfactory for Evaluation - transformation zone component present GENERAL CATEGORIZATION ? Negative for Intraepithelial Lesion or Malignan cy ?? Specimen/Source: ??Pap Test, Cervix/Endocervix, ThinPr ep Imaging System with manual evaluation Document reviewed and electronically signed by: ? Arlene Singh, CT(ASCP)(IAC) ? Report ??Date: 09/25/2012 12:19 HPV with Pap Test ? Date Ordered: ? 09/25/2012 ? Status: ?? Signed Out ?Date Complete: ? 09/30/2012 ? By: ??S ystem Interface ? Date Reported: ? 09/30/2012 ? Interpretation RESULT: Negative for HPV. No E6 or E7 mRNA is detected from HPV types 16,18,31,3 3,35, 39,45,51,52,56,58,59,66, and 68 by boat tender media kieran amplification. Comments Document reviewed and electronically signed by: ? System Interface ? Report date: 09/30/2012 By the signature above, the attending physician certif ies that he/she has personally conducted a gross and/or microscopic examin ation of the described specimens and rendered or confirmed the above diagnosi s. End of Report Specimen Performing Organization Address City/State/ZIP Code Phon e Number [facility] [address] [place] [address] SERVICES [facility] [address] [place] [address] documented in this encounter Visit Diagnoses Not on filedocumented in this encounter
--- OUTSIDE RECORDS SUMMARY | 2022-04-22 00:15 | XMS_ITS | Encounter Summary ---
:[address] [facility] Address [address] [place] [address] Care Team Providers Name Role Phone Tenzin Espinoza MD Primary Care Provider Encounter Details Date Type Department Care Team Description 02/02/2021 Lab Requisition [facility] Marixa Choi for other Pathology & M, DO general examination Laboratory Medicine - [address] [place] [id number] Social History Tobacco Use Types Packs/Day Years Used Date Never Assessed Sex Assigned at Date Recorded Not on file documented as of this encounter Plan of Treatment Not on filedocumented as of this encounter Procedures Procedure Name Priority Date/Time Associated Diagnosis Comme nts SURGICAL PATHOLOGY Today 02/02/2021 14:30 Encounter for othe r Results for this EDT general examination procedur e are in the results section. documented in this encounter Results SURGICAL PATHOLOGY (02/02/2021 14:30 EDT) Final Diagnosis A. JEJUNUM, PROXIMAL, BIOPSY: [facility] - Benign small bowel mucosa showing no pathologic abno rmality. [facility] B. STOMACH, ANTRUM, BIOPSY: SERVICES - Gastric antral mucosa showing changes of reactive (c hemical) gastropathy C. STOMACH, GREATER CURVE, BIOPSY: - Gastric oxyntic mucosa showing no pathologic abnorma lity D. ESOPHAGUS, GASTROESOPHAGEAL JUNCTION, BIOPSY: - Squamocolumnar mucosal tissue showing mild reactive changes - Negative for intestinal metaplasia. Negative for dys plasia. E. ESOPHAGUS, DISTAL, BIOPSY: - Benign gastric mucosa showing no pathologic abnormal ity. - No squamous epithelium is identified in this specime n. - Negative for intestinal metaplasia. Negative for dys plasia. Attestation By the signature [facility] Electronica lly below, the attending CENTER signed by Von physician certifies LABORATORY MD Iliana on that they have 1) SERVICES 02/06/2021 a t 1245 personally conducted a gross and/or microscopic examination of the described specimen(s), and/or personally interpreted the results of laboratory testing of the described specimen(s), and 2) personally rendered or confirmed the above diagnosis. Clinical History GERD; weight loss [facility] Gross Description A. [facility] Received in formalin christian d with proper patient identification (initials R, R) and proximal jejunum is a matos focally brown speckled tissue (0.4 x 0.4 x 0.2 cm). Submitted intact in A1. [facility] B. SERVICES Received in formalin christian d with proper patient identification (initials R, R) and antrum is a matos tissue (0.5 x 0.2 x 0.2 cm). Submitted intact in B1. C. Received in formalin christian d with proper patient identification (initials R, R) and greater curve is a matos focally pinpoint brown tissue (0.6 x 0.3 x 0.2 cm). Submitted intact in C1. D. Received in formalin christian d with proper patient identification (initials R, R) and GE junction is a pale matos-white focally brown speckled tissue (0.5 x 0.3 x 0.2 cm). Submitted intact in D1. E. Received in formalin christian d with proper patient identification (initials R, R) and distal esophagus is a matos focally brown speckled tissue (0.6 x 0.3 x 0.2 cm). Submitted intact in E1. Talon Colvin 02/03/2021 11:37 Performing Lab [facility] Scanned Images [facility] Specimen Tissue - Entire esophagus (body structur e) Tissue specimen (specimen) - Entire stom ach (body structure) Tissue specimen (specimen) - Entire stom ach (body structure) Tissue specimen (specimen) - Entire esop hagus (body structure) Tissue specimen (specimen) - Entire esop hagus (body structure) Performing Organization Address City/State/[facility] Code Phon e Number [facility] [address] [place] [address] [place] [address] SERVICES documented in this encounter Visit Diagnoses Diagnosis Encounter for other general examination documented in this encounter Care Teams Liaison Inspection Laboratory Assistant Relationship Specialty Start Date End Date Tenzin Espinoza MD PCP - General 05/11/19 [address] [place] [address] documented as of this encounter
--- NOTE | 2022-04-22 13:45 | DI.MRI_ITS ---
Exam(s) MR LUMBAR SPINE WO EXAM: MR LUMBAR SPINE WO CLINICAL HISTORY: ACUTE ON CHRONIC LBP TO LT POSTERIOR HIP PAIN,M25.552,X6 WEEKS, 10% WT LOSS. TECHNIQUE: Multiplanar multisequence MRI of the Lumbar spine was performed. COMPARISON: CR XR SACRUM from 07/06/2021 FINDINGS: Bones: The last intervertebral disc space is designated the L5/S1 level for the numbering purpose of this examination. The vertebral body heights are well maintained. Alignment is satisfactory. The ma rrow signal characteristics are unremarkable. Cord: The conus tip ends at the L1-2 level. It is of normal size and signal intensity. T12-L1: No disc herniations or bulges are present. No central spinal canal or neural foraminal stenos is. L1-2: No disc herniations or bulges are present. No central spinal canal or neural foraminal stenosis . L2-3: Mild central disc bulging. No central spinal canal or neural foraminal stenosis. L3-4: Mild disc bulging eccentric toward the right. No central spinal canal or neural foraminal sten osis. L4-5: Small left foraminal disc herniation with impingement on the exiting nerve root.. No central s marcie canal or neural foraminal stenosis. L5-S1: There is severe loss of disc height. Broad-based endplate osteophytes cause [id number] bilateral neural foraminal encroachment. No central canal stenosis. The visualized SI joints and sacrum are well maintained. Soft tissues: The paraspinal soft tissues are unremarkable. IMPRESSION: Left foraminal disc herniation at L 4 5 with apparent impingement on the exiting nerve root. Endplate osteophytes cause mild moderate bilateral neural foraminal encroachment at L5-S1. DATA REPOSITORY:
== END ==
PROVIDERS: PCP Family Medicine; Visit Provider Family Medicine
DX: M51.26 Other intervertebral disc displacement, lumbar region (principal); M25.78 Osteophyte, vertebrae; G89.29 Other chronic pain; M25.552 Pain in left hip
CPT/HCPCS: 72148

== ENCOUNTER → 2022-09-18 09:41 | Outpatient (BNVA) | payer MEDICARE, MEDICAID, SELFPAY | PROVIDERS: PCP Family Medicine; Referring Provider Family Medicine; Visit Provider Physical Therapy Assistant | DX: F17.210 Nicotine dependence, cigarettes, uncomplicated (principal); Z86.010 Personal history of colon polyps; R10.13 Epigastric pain; K29.70 Gastritis, unspecified, without bleeding; K52.9 Noninfective gastroenteritis and colitis, unspecified | CPT/HCPCS: 99214 ==

== ENCOUNTER → 2022-10-10 10:27 | Outpatient (BNVA) | payer MEDICARE, MEDICAID, SELFPAY | PROVIDERS: PCP Family Medicine; Referring Provider Family Medicine; Visit Provider Physical Therapy Assistant | DX: K29.70 Gastritis, unspecified, without bleeding (principal); K52.9 Noninfective gastroenteritis and colitis, unspecified; R63.4 Abnormal weight loss | CPT/HCPCS: 99213 ==

== ENCOUNTER 2022-10-22 10:23 | Outpatient (REF) | payer MEDICARE, MEDICAID, SELFPAY ==
[2022-10-22 22:45] LABS: Campylobacter PCR Negative (Negative); Salmonella PCR Negative (Negative); Shiga Toxin PCR Negative (Negative); Shigella/Enteroinvasive Ecoli Negative (Negative)
[2022-10-24 20:13] LABS: Calprotectin 109 mcg/g
== END 2022-10-22 10:24 | disposition home or self-care (01) ==
LOC: LBN 10:23
PROVIDERS: PCP Family Medicine; Visit Provider Physical Therapy Assistant
DX: R63.4 Abnormal weight loss (principal); K52.89 Other specified noninfective gastroenteritis and colitis
CPT/HCPCS: 87505; 83993; 87177

== ENCOUNTER 2022-11-07 02:08 | Outpatient (CLI) | payer MEDICARE, MEDICAID, SELFPAY ==
--- NOTE | 2022-11-07 12:58 | DI.MAMMO_ITS ---
Exam(s) MAMMO SCREENING EXAM: MAMMO SCREENING CLINICAL HISTORY: SCREENING, Z00.00,PREVENTIVE HEALTH CARE TECHNIQUE: Mammograms were interpreted according to the usual protocol including computer analysis w [employer] CAD system, tomosynthesis and C-view imaging. COMPARISON: 2012 through 2020 FINDINGS: The breasts are composed of scattered fibroglandular densities, Breast Density category B. No suspicious masses or suspicious microcalcifications are seen. No skin thickening or abnormal axillary lymph nodes are seen. There has been no significant change from prior exams. IMPRESSION: BI-RADS Category 1, Negative mammogram Yearly screening mammography is recommended. Breast Density - Category B, scattered fibroglandular densities. A negative radiographic report should not delay biopsy if a dominant or clinically suspicious mass is present. Up to ten percent of cancers are not identified on mammography. A negative report may reinforce clinical impression. Adenosis and dense breasts may obscure an underlying neoplasm. False positive reports average 6 to 10%. Patient will receive a letter notifying them of these results.
== END 2022-11-07 02:28 ==
LOC: DI 02:08
PROVIDERS: PCP Family Medicine; Visit Provider Family Medicine
DX: Z12.31 Encounter for screening mammogram for malignant neoplasm of breast (principal)
CPT/HCPCS: 77063; 77067

== ENCOUNTER → 2022-11-28 10:49 | Outpatient (BNVA) | payer MEDICARE, MEDICAID, SELFPAY | PROVIDERS: PCP Family Medicine; Referring Provider Family Medicine; Visit Provider Physical Therapy Assistant | DX: K52.9 Noninfective gastroenteritis and colitis, unspecified (principal); K20.90 Esophagitis, unspecified without bleeding; K29.70 Gastritis, unspecified, without bleeding; R63.4 Abnormal weight loss; R10.9 Unspecified abdominal pain; R10.13 Epigastric pain | CPT/HCPCS: 99213 ==

== ENCOUNTER 2022-12-06 13:44 | Outpatient (CLI) | payer MEDICARE, MEDICAID, SELFPAY ==
--- NOTE | 2022-12-06 13:45 | RT.EKG_ITS ---
APPROVED REPORT Exam: Resting ECG Reason for Exam: cardiac evaluation Patient Location: O HR:70 bpm ECG Measurements Heart Rate 70 AXIS IL 106 P -1 QRSd 101 QRS 79 QT 401 T 63 QTc 433 Conclusion Sinus rhythm...normal P axis, V-rate 50- 99 Short IL interval...IL <110mS
== END 2022-12-06 13:45 | disposition home or self-care (01) ==
LOC: DI.CARD 13:47
PROVIDERS: PCP Family Medicine; Referring Provider Family Medicine; Visit Provider Internal Medicine Cardiovascular Disease
DX: R00.2 Palpitations (principal); R42 Dizziness and giddiness; I45.6 Pre-excitation syndrome
CPT/HCPCS: 93010

== ENCOUNTER → 2022-12-06 13:44 | Outpatient (BNVA) | payer MEDICARE, MEDICAID, SELFPAY | PROVIDERS: PCP Family Medicine; Referring Provider Family Medicine; Visit Provider Internal Medicine Cardiovascular Disease | DX: R42 Dizziness and giddiness (principal); R00.2 Palpitations | CPT/HCPCS: 93005; 93270; 99202; 99214 ==

== ENCOUNTER 2022-12-06 14:26 | Outpatient (CLI) | payer MEDICARE, MEDICAID, SELFPAY | END 2022-12-06 14:27 | disposition home or self-care (01) | PROVIDERS: PCP Family Medicine; Visit Provider Internal Medicine Cardiovascular Disease | DX: R00.2 Palpitations (principal) | CPT/HCPCS: 93270 ==

== ENCOUNTER 2023-01-13 13:16 | Outpatient (CLI) | payer MEDICARE, MEDICAID, SELFPAY ==
--- NOTE | 2023-01-13 13:29 | W.CARDEVENT ---
Date of service: 01/13/23 Time of Service: 13:29 Cardiac Event Recorder Referring Provider:: Lasha Khan Indications:: Palpitations Cardiac Event Note: This is an event monitor ordered for palpitations Patient was monitored for total of 20 days and 23 hours Predominant rhythm was sinus with an average heart rate of 77. Minimum was 55, maximum 109 No significant atrial or ventricular dysrhythmias were recorded
== END 2023-01-13 13:17 | disposition home or self-care (01) ==
LOC: CARDOPNVT 13:16
PROVIDERS: PCP Family Medicine; Visit Provider Internal Medicine Cardiovascular Disease
DX: R00.2 Palpitations (principal)
CPT/HCPCS: 93272

== ENCOUNTER 2023-01-27 14:11 | Outpatient (CLI) | payer MEDICARE, MEDICAID, SELFPAY ==
--- NOTE | 2023-01-27 | DI.RAD_ITS ---
Exam(s) XR CHEST 2V PA LATERAL EXAM: XR CHEST 2V PA LATERAL CLINICAL HISTORY: DECREASED LUNG SOUNDS, R06.89, PRODUCTIVE COUGH PURULENT SPUTUM, R05.8 TECHNIQUE: 2D digital imaging was performed of the chest. Two images were obtained. PA and lateral views were obtained. COMPARISON: CR XR CHEST 2V PA LATERAL from 06/02/2020 FINDINGS: MEDIASTINUM: Normal. HEART: Normal. PULMONARY VASCULATURE: Normal. LUNGS: No focal consolidating infiltrates are present. PLEURAL SPACE: No pleural effusion or pneumothorax. BONE:Within normal limits for the patient's age. OTHER FINDINGS:Normal. IMPRESSION: No acute pulmonary findings. DATA REPOSITORY: RADIATION DOSE DELIVERED:
== END 2023-01-27 14:31 ==
LOC: DI 14:12
PROVIDERS: PCP Family Medicine; Visit Provider Nurse Practitioner Family
DX: R06.89 Other abnormalities of breathing (principal); R05.8 Other specified cough
CPT/HCPCS: 71046

== ENCOUNTER → 2023-02-07 10:49 | Outpatient (BNVA) | payer MEDICARE, MEDICAID, SELFPAY | PROVIDERS: PCP Family Medicine; Referring Provider Family Medicine; Visit Provider Internal Medicine Cardiovascular Disease | DX: R00.2 Palpitations (principal) | CPT/HCPCS: 99212 ==

== ENCOUNTER 2023-05-12 01:36 | Outpatient (CLI) | payer MEDICARE, MEDICAID, SELFPAY ==
--- NOTE | 2023-05-12 | DI.CTLCSR_ITS ---
Exam(s) CT CHEST LUNG CANCER SCREEN EXAM: CT CHEST LUNG CANCER SCREEN CLINICAL HISTORY: SCREENING FOR LUNG CA, SMOKER, F17.210 TECHNIQUE: Imaging Protocol: Axial computed tomography images with coronal and sagittal reformatted images were created and reviewed. Low dose screening protocol. COMPARISON: CT CT CHEST LUNG CANCER SCREEN from 01/16/2022 FINDINGS: Tracheobronchial tree: No bronchiectasis or mucus plugging.. Mediastinum and Vi: No dominant adenopathy or fluid collection. Pulmonary parenchyma: Mild apical scarring. No consolidation or dominant measurable mass. Mild to mo derate emphysematous changes. Lung Nodules: Calcified granulomas right middle and lower lobes. No suspicious pulmonary nodules.. Pleura: No effusion. No pneumothorax. Heart: The heart is not dilated. No coronary artery calcifications are seen. Aorta: Thoracic aorta non-dilated. Upper abdomen: Unremarkable. Bones: Unremarkable for age. Soft Tissues: Unremarkable. IMPRESSION: No suspicious pulmonary nodules. Lung RADS Cat 1 - Negative: No nodules and definitely benign nodules Lung-RADS 1.0 CATEGORIES: Category 0 - Prior chest CT exam(s) being located for comparison. Category 1 - Annual screening in 12 months. No nodules or definitely benign nodules. Category 2 - Annual screening in 12 months. Benign appearance. Nodules with low likelihood of becomin g active cancer. Category 3 - 6-month follow-up. Probably benign. Short-term follow-up suggested. Nodules with low lik elihood of becoming active cancer. Category 4A - 3-month follow-up and CT/PET if >8 mm in size. Suspicious finding. Findings which requi re additional testing. Category 4B - Findings which require additional testing and tissue sampling. Category 4X - Category 3 or 4 nodules with additional features or imaging findings that increases the suspicion of malignancy. Modifier S- Potentially clinically significant findings (non lung cancer) RADIATION DOSE DELIVERED: 79.97mGy.cm Total DLP DATA REPOSITORY: All CT scans at this facility are submitted to the National Radiology Data Registry (NRDR) Dose Index Registry (DIR) with the [employer] (ACR). RADIATION OPTIMIZATION: All CT scans at this facility use at least one of these dose optimization te chniques: automated exposure control; mA and/or kV adjustment per patient size (includes targeted exa ms where dose is matched to clinical indication); or iterative reconstruction.
== END 2023-05-12 01:56 ==
LOC: DI 01:36
PROVIDERS: PCP Family Medicine; Visit Provider Family Medicine
DX: F17.210 Nicotine dependence, cigarettes, uncomplicated (principal); Z12.2 Encounter for screening for malignant neoplasm of respiratory organs
CPT/HCPCS: 71271

== ENCOUNTER 2023-05-12 09:17 | Outpatient (CLI) | payer MEDICARE, MEDICAID, SELFPAY | END 2023-05-12 09:18 | disposition home or self-care (01) | PROVIDERS: PCP Family Medicine; Visit Provider Family Medicine | DX: R42 Dizziness and giddiness (principal) | CPT/HCPCS: 71271; 93246 ==

== ENCOUNTER 2023-06-03 08:43 | Outpatient (CLI) | payer MEDICARE, MEDICAID, SELFPAY ==
--- NOTE | 2023-06-03 09:53 | W.CARDEVENT ---
Date of service: 06/03/23 Time of Service: 09:53 Cardiac Event Recorder Referring Provider:: Tenzin Espinoza Indications:: Palpitations and dizziness Cardiac Event Note: This is a cardiac event monitor ordered for palpitations and dizziness Patient was monitored for 11 days Rhythm throughout was sinus with an average heart rate of 82. Minimum was 48, maximum 144 There were very rare isolated atrial and ventricular ectopic beats A total of 8 self-limited atrial runs occurred. These were 3-6 beats in duration. None were symptomatic There was no atrial fibrillation, no high-grade AV block, no pauses greater than 3 seconds Symptoms were reported which correlated to sinus rhythm
== END 2023-06-03 08:44 | disposition home or self-care (01) ==
LOC: CARDOPNVT 08:43
PROVIDERS: PCP Family Medicine; Visit Provider Internal Medicine Cardiovascular Disease
DX: R00.2 Palpitations (principal); R42 Dizziness and giddiness; I49.1 Atrial premature depolarization
CPT/HCPCS: 93248

== ENCOUNTER → 2023-10-20 04:34 | Outpatient (CLI) | payer MEDICARE, MEDICAID, SELFPAY ==
--- NOTE | 2023-10-20 09:30 | DI.US_ITS ---
APPROVED REPORT EXAM: Comprehensive 2D, Doppler, and color-flow Echocardiogram Patient Location: Out-Patient Inspector Bicycle: Pablito Molina RDCS (AE) Indications: near syncope, smoker Conclusion 1. LV upper limits, other chambers normal sizes. 2. Borderline normal LV systolic fuction,EF 50-55%. Mild hypokinesis of the anteroseptal segment. Nor mal RV function. 3. Anatomically normal valves.No significant regurgitation or stenosis. 4. No intracardiac shunt. 5. No pericardial effusion. Wall motion Left Ventricle The left ventricle is normal size. The left ventricular systolic function is normal. The left ventric ular ejection fraction is within the normal range. There is normal left ventricular wall thickness. T here is normal LV segmental wall motion. There is no ventricular septal defect visualized. LVEF is 55 %. Right Ventricle The right ventricle is normal size. The right ventricular systolic function is normal. Atria The left atrium size is normal. The right atrium size is normal. The interatrial septum is intact wit h no evidence for an atrial septal defect. Aortic Valve The aortic valve is normal in structure. Aortic valve is trileaflet. There is no aortic valvular sten osis. Trace aortic regurgitation. Mitral Valve Mitral valve leaflets are mildly thickened. No evidence of mitral valve stenosis. There is no mitral valve regurgitation noted. Tricuspid Valve The tricuspid valve is normal in structure. There is no tricuspid valve stenosis. Trace tricuspid reg urgitation. Unable to assess PA pressure. Pulmonic Valve The pulmonary valve is normal in structure. There is no pulmonic valvular stenosis. There is no pulmo josue valvular regurgitation. Great Vessels The aortic root is normal in size. Ascending aorta is not well visualized. Aortic arch is not well vi sualized. IVC is normal in size and collapses >50% with inspiration. Pericardium There is no pericardial effusion. 2D Dimensions IVSD d PLAX 0.79 cm F: 0.6-1.0 Ao Root d 2.82 cm F: 2.7 - 3.3 LVPW d PLAX 0.79 cm F: 0.6 - 1.0 LVID d PLAX 4.39 cm F: 3.8 - 5.2 LVDs 3.12 cm F: 2.2 - 3.5 LV EF Teichholz 55.9 % FS 28.97 % LV EDV (Teich) 87.2 mL LV ESV (Teich) 38.5 mL Stroke Vol Index (Teich) 38.70 M-Mode TAPSE 1.74 cm (M/F) >1.7 Auto EF LV EDV A4C 87.3 mL LV EDV A2C 95.2 mL LV EDV BP 91.9 mL LV ESV A4C 41.1 mL LV ESV A2C 44.3 mL LV ESV BP 43.0 mL LVEF(%) A4C 52.9 % LVEF(%) A2C 53.5 % LVEF(%) BP 53.2 % LV SV A4C 46.2 ml LV SV A2C 50.9 ml LV SV BP 48.9 ml LV CO A4C 3.4 L/min LV CO A2C 4.7 L/min LV CO BP 4.0 L/min HR A4C 73.29 BPM HR A2C 91.61 BPM LV EDV Index (BP) LA Volume LA Length A4C 2.5 cm LA Length A2C 1.8 cm LA Area A4C s 4.64 cm2 LA Area A2C s 3.70 cm2 LA Vol A4C A-L 7.30 mL LA Vol A2C A-L 6.53 mL LA Vol Biplane A-L 8.2 mL LA Vol/BSA A4C A-L LA Vol/BSA A2C A-L LA Vol/BSA BP A-L 6.5 mL/m2 LA Vol A4C MOD 6.2 mL LA Vol A2C MOD 4.8 mL LA Vol BP MOD 6.4 mL RA Volume RA Area A4C 5.4 cm2 RA ESV A4C (A-L) 9.3mL RA Vol/BSA A4C A-L RA Length A4C 2.6 cm RA ESV A4C (MOD) 8.0mL LV Diastology MV E' medial 0.097 (>0.07 m/s) MV E Vmax 0.84 (0.4-1.3 m/s) MV E/E' MED 8.72 (<14) MV A Vmax 0.80 (0.4-1.3 m/s) MV E' lateral 0.101 (>0.1 m/s) E/A Ratio 1.0 MV E/E' LAT 8.35 (<14) MV E' Average 0.099 m/s MV E/E'(average) 8.53 Aortic Valve AoV Vmax 1.25 m/s LVOT Vmax 0.85 m/s AoV Peak Grad 31.9 mmHg LVOT Peak Grad 2.9 mmHg AoV Area (Vmax) 1.77 cm2 LVOT VTI 0.165 m AoV VTI 0.175 m LVOT Mean Grad 1.6 mmHg AoV Mean Shashank. 0.92 m/s LVOT SV 43.01 mL AoV Mean Grad 3.6 mmHg LVOT Diam s 1.80 cm AoV Area (VTI) 2.46 cm2 AV Regurg Peak Gr. 57.50 mmHg Velocity Ratio 0.68 AR Decel [place] 2.1m/sec2 AR DT 1828 msec AR PHT 530 msec AR Vmax 3.79 m/s Mitral Valve MV DT 207 (160-240 msec) Pulmonary Valve PV Vmax 1.00 (0.5-1.5 m/s) RVOT Vmax 0.95 m/s PV Peak Grad 4.0 mmHg RVOT Peak Gr. 3.6 mmHg PV Mean Shashank 0.78 m/s RVOT VTI 0.165 m PV Mean Grad 2.6 mmHg RVOT Mean Gr. 2.1 mmHg
== END ==
PROVIDERS: PCP Family Medicine; Visit Provider Family Medicine
DX: R55 Syncope and collapse (principal)
CPT/HCPCS: 93306

== ENCOUNTER 2023-11-03 18:37 | Outpatient (REF) | payer MEDICARE, MEDICAID, SELFPAY ==
[2023-11-03 16:01] LABS: Abs Immature Grans 0.01 10^3/uL (0.0-0.06); Absolute Basophil Count 0.06 10^3/uL (0.0-0.2); Absolute Eosinophil Count 0.16 10^3/uL (0.0-0.7); Absolute Lymphocyte Count 3.39 10^3/uL (1.2-3.4); Absolute Neutrophil Count 3.57 10^3/uL (1.2-6.7); Basophils % 0.8; HCT 40.7 % (36.0-46.0); HGB 13.8 g/dL (11.2-15.7); Immature Grans % 0.1; Lymphocytes % 42.4; MCHC 33.9 % (32.0-36.0); MCV 97 fL (80-95); MPV 9.7 fL (8.0-11.0); Neutrophils % 44.7; Platelet Count 366 10^3/uL (130-400); RBC 4.18 10^6/uL (3.93-5.22); RDW 13.6 % (11.7-14.6); RDW-SD 48.5 fL; WBC 7.99 10^3/uL (4.4-10.8)
[2023-11-03 16:40] LABS: ALT 19 U/L (14-59); AST 15 U/L (15-37); Albumin 4.3 g/dL (3.4-5.0); Alkaline Phosphatase 74 U/L (46-116); Anion Gap 11.2 mmol/L (3-11); BUN 17 mg/dL (7-18); CO2 26.8 mmol/L (21.0-32.0); CREATININE 0.7 mg/dL (0.55-1.02); Calcium 9.5 mg/dL (8.5-10.1); Calculated LDL 119 mg/dL (<100); Chloride 104 mmol/L (98-107); Cholesterol 220 mg/dL (<200); Estimated GFR 101.44 (mL/min/1.73m2); Glucose 100 mg/dL (74-106); HDL Cholesterol 79 mg/dL (40-60); Potassium 4.1 mmol/L (3.5-5.1); Sodium 142 mmol/L (136-145); TSH 0.85 uIU/mL (0.36-3.74); Total Protein 7.2 g/dL (6.4-8.2); Triglyceride 113 mg/dL (<150)
[2023-11-03 17:16] LABS: Bilirubin, Total 0.4 mg/dL (0.2-1.0)
== END 2023-11-03 18:38 | disposition home or self-care (01) ==
LOC: NCHCN 18:37
PROVIDERS: PCP Family Medicine; Visit Provider Family Medicine
DX: I51.9 Heart disease, unspecified (principal); R63.6 Underweight; R00.2 Palpitations
CPT/HCPCS: 80053; 80061; 84443; 85025

== ENCOUNTER 2023-11-18 10:37 | Outpatient (CLI) | payer MEDICARE, MEDICAID, SELFPAY | END 2023-11-18 10:38 | LOC: DS 11-20 10:37 | PROVIDERS: PCP Family Medicine; Visit Provider Dietitian, Registered | DX: R63.6 Underweight (principal); Z71.3 Dietary counseling and surveillance; E63.8 Other specified nutritional deficiencies | CPT/HCPCS: 97802 ==

== ENCOUNTER → 2023-12-16 13:45 | Outpatient (BNVA) | payer MEDICARE, MEDICAID, SELFPAY | PROVIDERS: PCP Family Medicine; Referring Provider Family Medicine; Visit Provider Internal Medicine Cardiovascular Disease | DX: R93.1 Abnormal findings on diagnostic imaging of heart and coronary circulation (principal) | CPT/HCPCS: 99213 ==

== ENCOUNTER 2023-12-19 15:50 | Outpatient (REF) | payer MEDICARE, MEDICAID, SELFPAY ==
--- NOTE | 2023-12-19 11:01 | PAPFT_PTH ---
PATIENT: Linda Moran LOC: [facility] U#:[id number] AGE/SX: 58/F ROOM: RE12/19/[address]: Tenzin Espinoza : 1965 BED: DIS: 12/19/2023 SPEC #: [id number] RECD: 12/19/23 17:13 STATUS: DENYS REQ #: [id number] RENATO: 12/19/23 11:[address]: Tenzin Espinoza DEPT: [facility] Cytology RECD BY: Gaby Beasley Tissues: 1 - CX/ENDOCX FOR PAP SMEARS Procedures: PAP THIN PREP/[facility] Screening HPV DNA PROBE Comments: [id number]
== END 2023-12-19 15:51 | disposition home or self-care (01) ==
LOC: NCHCN 15:50
PROVIDERS: PCP Family Medicine; Referring Provider Family Medicine; Visit Provider Family Medicine
DX: Z12.4 Encounter for screening for malignant neoplasm of cervix (principal); Z11.51 Encounter for screening for human papillomavirus (HPV)
CPT/HCPCS: 88142; 87624

== ENCOUNTER 2024-02-05 15:10 | Outpatient (REF) | payer MEDICARE, MEDICAID, SELFPAY ==
[2024-02-09 19:40] LABS: Gabapentin, Urine 691.1 ug/mL
== END 2024-02-05 15:11 | disposition home or self-care (01) ==
LOC: NCHCN 15:10
PROVIDERS: PCP Family Medicine; Visit Provider Student in an Organized Health Care Education/Training Program
DX: F31.89 Other bipolar disorder (principal); F41.8 Other specified anxiety disorders; F10.11 Alcohol abuse, in remission; Z51.81 Encounter for therapeutic drug level monitoring; Z79.899 Other long term (current) drug therapy
CPT/HCPCS: 80307

== ENCOUNTER 2025-02-11 15:18 | Outpatient (REF) | payer MEDICARE, MEDICAID, SELFPAY ==
[2025-02-11 21:21] LABS: Abs Immature Grans 0.01 10^3/uL (0.0-0.06); Absolute Basophil Count 0.08 10^3/uL (0.0-0.2); Absolute Eosinophil Count 0.15 10^3/uL (0.0-0.7); Absolute Lymphocyte Count 2.53 10^3/uL (1.2-3.4); Absolute Monocyte Count 0.65 10^3/uL (0.1-0.8); Absolute Neutrophil Count 3.64 10^3/uL (1.2-6.7); Basophils % 1.1 %; Eosinophils % 2.1 %; HCT 37.6 % (36.0-46.0); HGB 12.5 g/dL (11.2-15.7); Immature Grans % 0.1 %; Lymphocytes % 35.8 %; MCH 33.3 pg (27.0-33.0); MCHC 33.2 % (32.0-36.0); MCV 100 fL (80-95); MPV 9.4 fL (8.0-11.0); Monocytes % 9.2 %; Neutrophils % 51.7 %; Platelet Count 318 10^3/uL (130-400); RBC 3.75 10^6/uL (3.93-5.22); RDW 13.2 % (11.7-14.6); RDW-SD 48.8 fL; WBC 7.06 10^3/uL (4.4-10.8)
[2025-02-11 21:42] LABS: ALT 21 U/L (14-59); AST 15 U/L (15-37); Alkaline Phosphatase 75 U/L (46-116); Anion Gap 6.5 mmol/L (3-11); BUN 13 mg/dL (7-18); Bilirubin, Total 0.3 mg/dL (0.2-1.0); CO2 30.5 mmol/L (21.0-32.0); CREATININE 0.8 mg/dL (0.55-1.02); Calcium 9.3 mg/dL (8.5-10.1); Chloride 103 mmol/L (98-107); Estimated GFR 85.89 (mL/min/1.73m2); Glucose 90 mg/dL (74-106); Potassium 4.7 mmol/L (3.5-5.1); Sodium 140 mmol/L (136-145); TSH 0.79 uIU/mL (0.36-3.74); Total Protein 6.7 g/dL (6.4-8.2)
[2025-02-14 11:18] LABS: IgA 158 mg/dL (85-499); IgG 377 mg/dL (610-1616); IgM 57 mg/dL (35-242)
[2025-02-14 12:46] LABS: Albumin 64.8 % (55.8-66.1); Albumin g/dL 4.1 g/dL (3.6-5.2); Total Protein 6.3 g/dL (6.3-8.2)
== END 2025-02-11 15:19 | disposition home or self-care (01) ==
LOC: NCHCN 15:18
PROVIDERS: PCP Family Medicine; Visit Provider Student in an Organized Health Care Education/Training Program
DX: R63.6 Underweight (principal)
CPT/HCPCS: 80053; 82784; 84165; 84443; 85025

== ENCOUNTER 2025-03-09 14:13 | Outpatient (REF) | payer MEDICARE, MEDICAID, SELFPAY ==
[2025-03-09 16:21] LABS: Folate 5.6 ng/mL (8.6-20.0); Vitamin B12 471 pg/mL (193-986)
== END 2025-03-09 14:14 | disposition home or self-care (01) ==
LOC: NCHCN 14:13
PROVIDERS: PCP Family Medicine; Visit Provider Student in an Organized Health Care Education/Training Program
DX: D75.89 Other specified diseases of blood and blood-forming organs (principal)
CPT/HCPCS: 82607; 82746

== ENCOUNTER 2025-03-16 02:46 | Outpatient (CLI) | payer MEDICARE, MEDICAID, SELFPAY ==
--- NOTE | 2025-03-16 | DI.CT_ITS ---
Exam(s) CT CHEST WO EXAM: CT CHEST WO CLINICAL HISTORY: R63.6 Underweight, 12 lbs of unexplained wt loss, w/heavy,extensive smoking. TECHNIQUE: Imaging protocol: Axial computed tomography images were obtained and coronal and sagittal reformatted images were created and reviewed. Lung Computer Aided Detection (CAD) was utilized. COMPARISON: CT CT CHEST LUNG CANCER SCREEN from 05/12/2023 FINDINGS: Tracheobronchial tree: Patent where visualized. No bronchiectasis is present. Pulmonary parenchyma: No consolidation or dominant measurable mass. Moderate centrilobular emphysemat ous changes are present. No suspicious pulmonary nodules are present. Calcified granuloma are again seen. Mediastinum and Vi: No dominant adenopathy or fluid collection. The esophagus is unremarkable. Thyroid gland: Unremarkable. Pleura: No effusion or pneumothorax. Heart: The heart is not dilated. No coronary artery calcifications are seen. No pericardial effusion. Aorta: Thoracic aorta non-dilated. Atherosclerotic calcification is present. Upper abdomen: Unremarkable. Lymph nodes: Within normal limits. Soft tissues: Unremarkable. Bones:Within normal limits for the patient's age. IMPRESSION: 1. No suspicious pulmonary nodules or infiltrates. 2. Moderate centrilobular emphysema. RADIATION DOSE DELIVERED: 84.79mGy.cm Total DLP 84.79mGy.cm Total DLP DATA REPOSITORY: All CT scans at this facility are submitted to the National Radiology Data Registry (NRDR) Dose Index Registry (DIR) with the [employer] (ACR). RADIATION OPTIMIZATION: All CT scans at this facility use at least one of these dose optimization te chniques: automated exposure control; mA and/or kV adjustment per patient size (includes targeted exa ms where dose is matched to clinical indication); or iterative reconstruction.
--- NOTE | 2025-03-16 08:40 | DI.RAD_ITS ---
Exam(s) XR THORACIC SPINE COMPLETE EXAM: XR THORACIC SPINE COMPLETE CLINICAL HISTORY: M54.6 Pain in thoracic spine, acute midline thoracic back pain. TECHNIQUE: 2D digital imaging was performed of the thoracic spine. Views were obtained. AP, swimm er's and lateral views were obtained. COMPARISON: No exams were available for comparison FINDINGS: BONES: There is no fracture or destructive lesion. Mild degenerative changes are seen throughout the thoracic spine. DISKS:Alignment is within normal limits. Interverebral disc spaces are maintained. SOFT TISSUE: Visualized lungs are clear. IMPRESSION: 1. Mild degenerative changes seen in the thoracic spine. 2. No acute fracture or subluxation in the thoracic spine. DATA REPOSITORY: RADIATION DOSE DELIVERED:
[2025-03-16] MEDS: Barium Sulfate 98% W/W 140 ML BTL PO (10:46)
[2025-03-16] MEDS: Barium Sulfate 700 MG TAB PO (10:47)
[2025-03-16] MEDS: Barium Sulfate 60% W/V 355 ML BTL PO (10:47)
--- NOTE | 2025-03-16 10:48 | DI.RAD_ITS ---
Exam(s) RF BARIUM SWALLOW EXAM: RF BARIUM SWALLOW CLINICAL HISTORY: R13.10 Dysphagia,unspecified,12lb weight loss,with increased difficulty TECHNIQUE: 2D and realtime digital imaging was performed. CONTRAST MATERIAL: Oral barium Oral water soluble contrast was administered. COMPARISON: No exams were available for comparison FINDINGS: CHEST X-RAY: The heart and pulmonary vasculature are within normal limits. The lungs are hyperinflate d suggesting underlying COPD. No focal consolidating infiltrates are present. No pleural effusion o r pneumothorax is present. The bones are within normal limits for the patient's age. ESOPHAGRAM: The esophagus is patent with no evidence for erosions, fold thickening, strictures, or ma sses. With regards to the motility, there is a normal primary stripping wave. No tertiary contraction s were noted. There is no hiatal hernia or gastroesophageal reflux. IMPRESSION: Normal esophogram RADIATION DOSE DELIVERED: amparo Castanon=5.09 mGy
== END 2025-03-16 03:06 ==
LOC: DI 02:46
PROVIDERS: PCP Family Medicine; Visit Provider Student in an Organized Health Care Education/Training Program
DX: R13.10 Dysphagia, unspecified (principal); M54.6 Pain in thoracic spine
CPT/HCPCS: 71250; 72072; 74221; J3490

== ENCOUNTER → 2025-09-20 09:25 | Outpatient (BNVA) | payer MEDICARE, MEDICAID, SELFPAY | PROVIDERS: PCP Student in an Organized Health Care Education/Training Program; Referring Provider Student in an Organized Health Care Education/Training Program; Visit Provider Internal Medicine Pulmonary Disease | DX: J44.89 Other specified chronic obstructive pulmonary disease (principal); R06.00 Dyspnea, unspecified; G47.36 Sleep related hypoventilation in conditions classified elsewhere; K21.9 Gastro-esophageal reflux disease without esophagitis; Z23 Encounter for immunization | CPT/HCPCS: 99215; 94618; 90471; 36415; 90684 ==

== ENCOUNTER 2025-09-20 11:01 | Outpatient (REF) | payer MEDICARE, MEDICAID, SELFPAY ==
[2025-09-20 11:16] LABS: Abs Immature Grans 0.01 10^3/uL (0.0-0.06); HCT 38.0 % (36.0-46.0); HGB 12.3 g/dL (11.2-15.7); Immature Grans % 0.1 %; MCH 31.4 pg (27.0-33.0); MCHC 32.4 % (32.0-36.0); MCV 97 fL (80-95); MPV 8.9 fL (8.0-11.0); Platelet Count 309 10^3/uL (130-400); RBC 3.92 10^6/uL (3.93-5.22); RDW 13.6 % (11.7-14.6); RDW-SD 48.3 fL; WBC 7.18 10^3/uL (4.4-10.8)
== END 2025-09-20 11:02 | disposition home or self-care (01) ==
LOC: LBN 11:01
PROVIDERS: PCP Student in an Organized Health Care Education/Training Program; Visit Provider Internal Medicine Pulmonary Disease
DX: J44.9 Chronic obstructive pulmonary disease, unspecified (principal); J45.909 Unspecified asthma, uncomplicated
CPT/HCPCS: 82785; 85025